=== PATIENT | female | born 1950 | race Caucasian/White ===

== ENCOUNTER 2019-03-28 19:05 | Emergency (ER) | payer MEDICARE, SELFPAY ==
[2019-03-28 19:06] VITALS: BP 162/95; PULSE 81; RESP 18; TEMP 36.5; O2SAT 97; BMI 30.9
--- NOTE | 2019-03-28 19:10 | RAD_ITS ---
STUDY: X-RAY - RIGHT KNEE REASON FOR EXAM: Female, 68 years old. Pain TECHNIQUE: 4 view(s) of the knee. COMPARISON: None. FINDINGS: No acute fracture, dislocation or osseous destruction. No significant joint space narrowing. No significant productive changes. No significant soft tissue swelling. Vascular calcifications are noted. IMPRESSION: No acute fracture or dislocation. Electronically Signed: Jose Holder, at 19:27 EST Tel , Service support , RAD/Knee 4 or More Views
--- NOTE | 2019-03-28 22:37 | ED.DCSUM_ITS ---
- ER Visit Summary Date of Service: 03/28/19 Chief Complaint: Right knee pain History of Present Illness: The patient is a 68 F who presents with right knee pain that has been getting progressively worse over the past 2 weeks. Patient describes the pain as sharp. Patient states initially the pain was radiating down her right leg but now is radiating to her right thigh. Patient denies any trauma or injury. Patient states nothing makes it better or worse. Patient denies any paresthesias or weakness. Patient states she is running out of her pain medication which is hydrocodone. Physical Examination: Vital signs are stable. Patient is afebrile. Patient is in no acute distress. Musculoskeletal exam reveals tenderness along the medial and lateral joint lines of the right knee. There is no effusion noted. There is no bony crepitance or step-off. There is good range of motion. There is no laxity appreciated. There is no calf tenderness noted. There is no lower extremity edema. There is some mild tenderness over the distal right thigh. There is no erythema or warmth. Sensation was intact to light touch bilateral and lower extremities. Strength is 5/5 bilateral and lower extremities. Test Results: X-rays of the right knee were obtained. There is no acute fracture. There is no effusion. There are very mild degenerative changes noted. These were interpreted by the radiologist and reviewed by myself. Emergency Department Course and Treatment: Patient was instructed to ice and elevate the right knee. Patient was instructed to follow-up with her primary care physician in 3 to 5 days. Patient was given a prescription for short course of [place]. Patient understood and was agreeable with the plan. All questions were answered. Disposition: Discharge home Impression: Right knee pain This note was generated with Playhem dictation software. It may contain incorrect words, spelling, and punctuation that were not noted in review of the chart prior to signing ED Disposition - Plan for ED Patient: Disposition: Home or Assisted Living Diagnosis: Right knee pain Instructions: KNEE PAIN, Uncertain Cause Prescriptions: Hydrocodone Bitart/Apap 5-325 [[place] 5MG-325MG] 1 tab PO Q6H PRN PRN 3 Days #10 tab PRN Reason: Pain Prescription Printed Referrals: Neo Merlos DO [Primary Care Provider] - 3-5 Days
== END 2019-03-28 22:58 | disposition home or self-care (01) ==
PROVIDERS: Emergency Provider Emergency Medicine; Family Provider Family Medicine; PCP Family Medicine
DX: M25.561 Pain in right knee (principal); J34.89 Other specified disorders of nose and nasal sinuses; J02.9 Acute pharyngitis, unspecified; R05 Cough; M54.9 Dorsalgia, unspecified; K21.9 Gastro-esophageal reflux disease without esophagitis; M10.9 Gout, unspecified; F41.9 Anxiety disorder, unspecified; G40.909 Epilepsy, unspecified, not intractable, without status epilepticus; Z86.718 Personal history of other venous thrombosis and embolism; Z79.01 Long term (current) use of anticoagulants; Z79.899 Other long term (current) drug therapy; F17.200 Nicotine dependence, unspecified, uncomplicated
CPT/HCPCS: 73564; 99282

== ENCOUNTER → 2019-04-05 16:15 | Outpatient (CLI) | payer MEDICARE, SELFPAY ==
[2019-03-28 19:06] VITALS: BMI 30.9
== END ==
PROVIDERS: Family Provider Family Medicine; PCP Family Medicine; Visit Provider Family Medicine
DX: M25.561 Pain in right knee (principal)
CPT/HCPCS: 36415

== ENCOUNTER → 2022-11-21 | Outpatient (CLI) | payer BC, MEDICARE, SELFPAY | END | disposition home or self-care (01) | PROVIDERS: PCP Family Medicine; Referring Provider Family Medicine; Visit Provider Family Medicine | DX: R05.9 Cough, unspecified (principal) | CPT/HCPCS: 87635 ==

== ENCOUNTER 2023-01-22 12:29 | Emergency (ER) | payer BC, MEDICARE, SELFPAY ==
[2023-01-22 12:31] VITALS: BP 163/89; PULSE 69; RESP 18; TEMP 36.8; O2SAT 97; BMI 28.5
--- NOTE | 2023-01-22 12:54 | EKG12_ITS ---
Test Reason : CP Blood Pressure : / mmHG Vent. Rate : 062 BPM Atrial Rate : 062 BPM P-R Int : 146 ms QRS Dur : 092 ms QT Int : 420 ms P-R-T Axes : 069 077 068 degrees QTc Int : 426 ms Normal sinus rhythm Nonspecific ST abnormality Abnormal ECG Confirmed by CHAO DEE, JOSE MARTIN ([id number]), videotape editor JOANN PATEL ([id number]) on 01/25/2023 10:45:58 AM Referred By: RUSTY/REGGIE Confirmed By:JOSE MARTIN GUIDRY MD
--- NOTE | 2023-01-22 12:55 | NURSING ---
no old ekgs
--- NOTE | 2023-01-22 12:56 | RAD_ITS ---
HISTORY: chest pain. TECHNIQUE: XR Chest 1 View. COMPARISON: None. FINDINGS: CARDIOMEDIASTINAL BORDERS: Cardiac silhouette within normal limits in size. Mediastinal contour unremarkable. LUNGS: Chronic coarse interstitial markings in the lungs without focal consolidation. PLEURA: No pleural effusion or pneumothorax seen. OSSEOUS STRUCTURES: Mild degenerative change. RAD/Chest 1 View (Portable) IMPRESSION: No acute cardiopulmonary process identified. Electronically Signed: Padma Lr MD at 13:26 EDT ,
--- NOTE | 2023-01-22 12:56 | EX.ED.DYSGE1 ---
HPI <EDY Mukherjee - Last Filed: 01/22/23 15:59> History of Present Illness Chief Complaint: Chest Pain Narrative Narrative: 72-year-old female with PMH of COPD, tobacco use presents with intermittent chest pain for the last month. About 2 to 3 days a week she will get midsternal sharp chest pain lasting anywhere from 5-30 minutes. It usually occurs at rest or lying down. She has no exertional or pleuritic pain. She has chronic shortness of breath and smoker's cough but denies increase in symptoms. There is no associated nausea vomiting or diaphoresis. No fever or chills. She denies history of DVT/PE or risk factors. Last episode of pain was last night but her urged her to come in for evaluation. She smokes about 3/4 a pack a day and has smoked since age 13. PFSH <EDY Mukherjee - Last Filed: 01/22/23 15:59> PFS Medical History (Updated 01/22/23 @ 13:57 by EDY Mukherjee) COVID-19 Home Medications diazepam 10 mg tablet (Valium) 10 mg PO BID PRN Anxiety 04/28/17 [History Last Taken Unknown] fluticasone 250 mcg-salmeterol 50 mcg/dose blistr powdr for inhalation (Advair Diskus) 1 ea IH DAILY 04/28/17 [History Last Taken Unknown] aspirin 81 mg tablet,delayed release (Adult Aspirin Regimen) 81 mg PO DAILY 12/02/21 [History Last Taken Unknown] azithromycin 250 mg tablet 250 mg PO QDAY #6 tabs 12/02/21 [Rx Last Taken Unknown] prednisone 10 mg tablet 10 mg PO DAILY #30 tabs 12/02/21 [Rx Last Taken Unknown] Allergy/AdvReac Type Severity Reaction Status Date / Time lactose Allergy Unknown Verified 01/22/23 12:30 Penicillins Allergy Unknown Verified 01/22/23 12:30 rizatriptan [From Maxalt] Allergy Vomiting Verified 01/22/23 12:30 ciprofloxacin [From Cipro] AdvReac Rash Verified 01/22/23 12:30 Surgical History (Updated 12/02/21 @ 13:57 by Katarina Carrillo) History of back surgery Social History (Updated 12/02/21 @ 13:58 by Katarina Carrillo) Smoking Status: Current every day smoker tobacco type: cigarettes ROS <EDY Mukherjee - Last Filed: 01/22/23 15:59> ROS ED ROS Narrative Constitutional: Negative for fever, chills, malaise. CVS: Negative for palpitations, chest pain, syncope. Respiratory: Positive for cough. Negative for orthopnea. GI: Negative for abdominal pain, nausea, vomiting. EXAM <EDY Mukherjee - Last Filed: 01/22/23 15:59> Physical Exam Narrative Exam Narrative: CONST: Patient sitting in no acute distress. EYES: Normal inspection. NECK: Normal inspection. RESP: No respiratory distress, expiratory wheezing throughout all santos. CVS: Regular rate and rhythm, no murmur, no gallop. SKIN: Color normal, no rash, warm, dry, intact. EXTREMITIES: Normal appearance, no pedal edema. NEURO: Oriented x4. PSYCH: Normal affect. Const Vital Signs: 01/22/23 12:31 01/22/23 12:47 01/22/23 13:09 Temperature 98.2 F Temperature Source Temporal Pulse Rate 69 Respiratory Rate 18 Respiratory Effort Normal Non-Labored Blood Pressure 163/89 H Blood Pressure Mean 113 Pulse Ox 97 95 Oxygen Delivery Method Room Air Room Air 01/22/23 16:03 Temperature Temperature Source Pulse Rate Respiratory Rate Respiratory Effort Blood Pressure 177/116 H Blood Pressure Mean Pulse Ox Oxygen Delivery Method <Dr. Jose Bradley DO - Last Filed: 01/22/23 16:17> Physical Exam Const Vital Signs: 01/22/23 12:31 01/22/23 12:47 01/22/23 13:09 Temperature 98.2 F Temperature Source Temporal Pulse Rate 69 Respiratory Rate 18 Respiratory Effort Normal Non-Labored Blood Pressure 163/89 H Blood Pressure Mean 113 Pulse Ox 97 95 Oxygen Delivery Method Room Air Room Air 01/22/23 16:03 Temperature Temperature Source Pulse Rate Respiratory Rate Respiratory Effort Blood Pressure 177/116 H Blood Pressure Mean Pulse Ox Oxygen Delivery Method MDM <EDY Mukherjee - Last Filed: 01/22/23 15:59> MDM MDM Narrative Medical decision making narrative: History gathered from: Patient and Patient's had intermittent midsternal chest pain over the last month. It usually occurs at rest and there is no associated symptoms. She has no pain presently. She appears well and nontoxic. She has chronic hypertension with otherwise normal vital signs. Exam is only notable for expiratory wheezing from her COPD. She denies increase in dyspnea or cough. Cardiac work-up was ordered. EKG is sinus rhythm with no ischemic changes and serial troponins are negative at 9 and 7. CBC and BMP unremarkable. CXR shows no acute process. I did not order D-dimer as she has no increased shortness of breath and normal vital signs. She remains asymptomatic here. Based on her history and work-up I have low concern this is cardiac but recommended she follow-up with her PCP for further evaluation of other chest pain etiologies such as GERD. She was discharged in stable condition. Lab Data Attestation: I reviewed the patient's lab results. Labs: Laboratory Results - last 24 hr 01/22/23 01/22/23 12:46 15:25 WBC 8.1 RBC 5.16 Hgb 16.0 H Hct 49.0 H MCV 95.0 MCH 31.0 MCHC 32.7 RDW Std Deviation 44.8 H RDW Coeff of Negro 12.6 Plt Count 298 MPV 9.5 Immature Gran % (Auto) 0.400 Neut % (Auto) 50.3 Lymph % (Auto) 36.7 [place] % (Auto) 8.5 Eos % (Auto) 3.2 Baso % (Auto) 0.9 Absolute Neuts (auto) 4.1 Absolute Lymphs (auto) 2.98 Nucleated RBC % 0 Sodium 141 Potassium 3.4 L Chloride 108 H Carbon Dioxide 28.0 Anion Gap 5 BUN 19 H Creatinine 0.70 Estim Creat Clear Calc 38.37 Est GFR (MDRD) Af Amer 106 Est GFR (MDRD) Non-Af 88 BUN/Creatinine Ratio 27.3 H Glucose 111 H Calcium 8.8 Troponin I High Sens 9 7 Radiography Diagnostic Testing: Clinical Impression(s) from Imaging Studies Chest X-Ray 01/22/23 12:56 IMPRESSION: No acute cardiopulmonary process identified. Electronically Signed: Padma Lr MD at 13:26 EDT , ED attending interpretation of 1- view chest x-ray shows normal heart size, no acute infiltrate, edema, or effusion. EKG Initial EKG: Attestation: I personally reviewed and interpreted this EKG as follows: Interpretation: Sinus Rhythm and No Acute Injury Pattern Comments: Normal sinus rhythm at [address] abnormality, no STEMI criteria <Dr. Jose Bradley, DO - Last Filed: 01/22/23 16:17> [facility] Narrative Medical decision making narrative: History gathered from: Patient and Patient's had intermittent midsternal chest pain over the last month. It usually occurs at rest and there is no associated symptoms. She has no pain presently. She appears well and nontoxic. She has chronic hypertension with otherwise normal vital signs. Exam is only notable for expiratory wheezing from her COPD. She denies increase in dyspnea or cough. Cardiac work-up was ordered. EKG is sinus rhythm with no ischemic changes and serial troponins are negative at 9 and 7. CBC and BMP unremarkable. CXR shows no acute process. I did not order D-dimer as she has no increased shortness of breath and normal vital signs. She remains asymptomatic here. Based on her history and work-up I have low concern this is cardiac but recommended she follow-up with her PCP for further evaluation of other chest pain etiologies such as GERD. She was discharged in stable condition. This patient was seen with a [employer] Individually assessed they patient including history and physical. I have reviewed everything on the chart that is available and agree with the documentation provided by the [employer] including discussion about the assessment, treatment plan, discussion, and return precautions. Patient with intermittent chest pain. HEART score of 3. CBC BMP, high-sensitivity troponin within normal limits. Delta troponin not significantly changed. Chest x-ray my interpretation shows no acute process. Radiologist interprets this and agrees. EKG sinus rhythm at 60 bpm, sinus congestion, interpretation. Given ultimately negative work-up I recommended follow-up with her PCP. Discharge instructions reviewed and return precautions discussed. Lab Data Labs: Laboratory Results - last 24 hr 01/22/23 01/22/23 12:46 15:25 WBC 8.1 RBC 5.16 Hgb 16.0 H Hct 49.0 H MCV 95.0 MCH 31.0 MCHC 32.7 RDW Std Deviation 44.8 H RDW Coeff of Negro 12.6 Plt Count 298 MPV 9.5 Immature Gran % (Auto) 0.400 Neut % (Auto) 50.3 Lymph % (Auto) 36.7 [place] % (Auto) 8.5 Eos % (Auto) 3.2 Baso % (Auto) 0.9 Absolute Neuts (auto) 4.1 Absolute Lymphs (auto) 2.98 Nucleated RBC % 0 Sodium 141 Potassium 3.4 L Chloride 108 H Carbon Dioxide 28.0 Anion Gap 5 BUN 19 H Creatinine 0.70 Estim Creat Clear Calc 38.37 Est GFR (MDRD) Af Amer 106 Est GFR (MDRD) Non-Af 88 BUN/Creatinine Ratio 27.3 H Glucose 111 H Calcium 8.8 Troponin I High Sens 9 7 Radiography Diagnostic Testing: Clinical Impression(s) from Imaging Studies Chest X-Ray 01/22/23 12:56 IMPRESSION: No acute cardiopulmonary process identified. Electronically Signed: Padma Lr MD at 13:26 EDT Reading Location ID and State: [address] [place] [address] Tel , Service support , Discharge Plan Triage Chief Complaint: Chest Pain ED Midlevel Provider: Ashley Monae ED Provider: Jose Bradley Dx/Rx/DC Orders Clinical Impression: Chest pain Instructions: Chest Pain [facility] Prescriptions: No Action aspirin [Adult Aspirin Regimen] 81 mg tablet,delayed release (DR/EC) 81 mg PO DAILY prednisone 10 mg tablet 10 mg PO DAILY Qty: 30 0RF Rx Instructions: 4 tablets daily x3 days, then 3 tablets daily x3 days, then 2 tablets daily x3 days, then 1 tablet daily x3 days azithromycin 250 mg tablet 250 mg PO QDAY Qty: 6 0RF Rx Instructions: 2 tablets today, then 1 tablet daily on days 2 through 5 fluticasone propion-salmeterol [Advair Diskus] 1 EACH blister with device 1 ea IH DAILY diazepam [Valium] 10 MG tablet 10 mg PO BID PRN (Reason: Anxiety) Primary Care Provider: Neo Merlos Referrals: Neo Merlos DO [Primary Care Provider] - Activity Restrictions/Additional Instructions: Today your blood work and chest x-ray looked normal. No signs of heart attack. I recommend you follow-up with your PCP next week or if symptoms worsen come back to the ER. Disposition Disposition: Home, Self Care Discharge Date/Time: 01/22/23 16:04
[2023-01-22 13:09] VITALS: O2SAT 95
[2023-01-22] MEDS: Aspirin 81 MG TAB.CHEW 324 MG PO (13:12)
[2023-01-22 13:15] LABS: Absolute Lymphocyte Count 2.98 X10^3/uL (0.83-4.51); Absolute Neutrophil Count 4.1 X10^3/uL (2.0-7.7); Basophil# 0.07 X10^3/uL; Basophil% 0.9 % (0-1); Eosinophil# 0.26 X10^3/uL; Eosinophils% 3.2 % (0-5); Lymphocyte # 2.98 X10^3/ul (0.83-4.51); Lymphocyte % 36.7 % (19-41); Mean Corp Hgb Conc 32.7 g/dL (32-36); Mean Platelet Vol. 9.5 fl (6.2-12.0); Monocyte# 0.69 X10^3/uL; Monocyte% 8.5 % (0-10); NRBC Flagged by Analyzer 0 % (0-5); Neutrophil % 50.3 % (47-70); Platelet Count 298 K/mm3 (150-450); RBC Distribution Width CV 12.6 % (11.6-14.6); RBC Distribution Width SD 44.8 fl (35.1-43.9); Red Blood Count 5.16 M/mm3 (4.2-5.4); White Blood Count 8.1 K/mm3 (4.4-11.0)
[2023-01-22 13:29] LABS: Anion Gap 5 (5-15); BUN 19 mg/dL (7-18); BUN/Creat Ratio 27.3 RATIO (10-20); Calcium,Total 8.8 mg/dL (8.5-10.1); Chloride 108 mmol/L (98-107); EST Glomerular Filtration Rate 88 mL/min (>60); Est Glom Filt Rate - Afr Amer 106 mL/min (>60); Estimated Creatinine Clearance 38.37 ml/min; Glucose 111 mg/dL (74-106); Potassium 3.4 mmol/L (3.5-5.1); Sodium Level 141 mmol/L (136-145); Troponin-I HS (w/2H Reflex) 9 pg/mL (3.0-54.0)
[2023-01-22 15:04] LABS: Reflex Troponin-HS? (from REC) Y
[2023-01-22 15:52] LABS: Troponin-I HS 7 pg/mL (3.0-54.0)
[2023-01-22 16:03] VITALS: BP 177/116
== END 2023-01-22 16:04 | disposition home or self-care (01) ==
PROVIDERS: Physician Assistant; Emergency Provider Student in an Organized Health Care Education/Training Program; PCP Family Medicine; Visit Provider Student in an Organized Health Care Education/Training Program
DX: R07.9 Chest pain, unspecified (principal); J44.9 Chronic obstructive pulmonary disease, unspecified; I10 Essential (primary) hypertension; F17.210 Nicotine dependence, cigarettes, uncomplicated; Z79.51 Long term (current) use of inhaled steroids
CPT/HCPCS: 71045; 80048; 84484; 85025; 93005; 99284; A4216

== ENCOUNTER → 2023-08-21 | Outpatient (CLI) | payer MEDICARE, SELFPAY ==
[2023-08-21 18:43] LABS: Cholesterol 223 mg/dL (200); High Density Lipoprotein 48 mg/dL; Triglycerides 116 mg/dL; Very Low Density Lipoprotein 23 mg/dL (5-40)
== END | disposition home or self-care (01) ==
PROVIDERS: PCP Family Medicine; Referring Provider Family Medicine; Visit Provider Family Medicine
DX: E78.5 Hyperlipidemia, unspecified (principal)
CPT/HCPCS: 36415; 80061

== ENCOUNTER 2023-09-08 15:29 | Outpatient (CLI) | payer MEDICARE, SELFPAY ==
--- NOTE | 2023-09-08 15:36 | CT_ITS ---
HISTORY: SCREENING FOR LUNG CA. TECHNIQUE: Helically acquired images were obtained of the chest without contrast. A radiation dose optimization technique was used for this scan. 847 images. COMPARISON: XR 01/22/2023. FINDINGS: LARGE AIRWAYS: Minimal dependent fluid in the central airways. LUNGS: Moderate centrilobular emphysema. Mild peripheral reticular scarring and bronchiectasis. 2 mm noncalcified right lower lobe nodule on image 198 of series 2. 2 mm left apical nodule on image 47. PLEURA: No pneumothorax or significant pleural effusion. HEART/PERICARDIUM: Heart within normal limits in size with coronary artery calcification. No pericardial effusion. VESSELS: Thoracic aorta nondilated. Mild atherosclerosis. MEDIASTINUM/BRANDIE: No pathologically enlarged adenopathy. BONES: Degenerative change. CT/Low Dose CT Lung Screening IMPRESSION: Pulmonary emphysema with 2 mm pulmonary nodules. Lung-RADS category 2: Continue annual screening with low dose CT. Electronically Signed: Padma Lr MD at 15:22 EDT ,
== END 2023-09-08 23:59 | disposition home or self-care (01) ==
PROVIDERS: PCP Family Medicine; Referring Provider Family Medicine; Visit Provider Family Medicine
DX: Z12.2 Encounter for screening for malignant neoplasm of respiratory organs (principal); J43.9 Emphysema, unspecified; R91.8 Other nonspecific abnormal finding of lung field; F17.210 Nicotine dependence, cigarettes, uncomplicated
CPT/HCPCS: 71271

== ENCOUNTER 2024-01-23 13:19 | Inpatient (IN) | payer MEDICARE, SELFPAY ==
[2024-01-23] VITALS (7 sets, daily range): BP systolic 113–159; BP diastolic 65–102; PULSE 65–89; RESP 15–20; TEMP 36.5–37; O2SAT 95–100; BMI 26.2; BMI 25.0
--- NOTE | 2024-01-23 14:07 | EKG12_ITS ---
Test Reason : Blood Pressure : / mmHG Vent. Rate : 059 BPM Atrial Rate : 059 BPM P-R Int : 136 ms QRS Dur : 086 ms QT Int : 412 ms P-R-T Axes : 079 079 076 degrees QTc Int : 407 ms Sinus bradycardia Otherwise normal ECG Confirmed by CHAO DEE, JOSE MARTIN ([id number]), state editor STUART RIOS ([id number]) on 01/25/2024 1:43:18 PM Referred By: Confirmed By:JOSE MARTIN GUIDRY MD
--- NOTE | 2024-01-23 14:07 | RAD_ITS ---
HISTORY: Stroke. TECHNIQUE: XR Chest 1 View. COMPARISON: 01/22/2023. FINDINGS: CARDIOMEDIASTINAL BORDERS: Cardiac silhouette within normal limits in size. Mediastinal contour unremarkable. LUNGS: Chronic coarse interstitial markings in the lung bases without focal consolidation. PLEURA: No pleural effusion or pneumothorax seen. OSSEOUS STRUCTURES: Degenerative change. RAD/Chest 1 View (Portable) IMPRESSION: No acute cardiopulmonary process identified. Electronically Signed: Padma Lr MD at 15:15 EDT ,
[2024-01-23 14:27] LABS: Absolute Lymphocyte Count 2.77 X10^3/uL (0.83-4.51); Absolute Neutrophil Count 5.7 X10^3/uL (2.0-7.7); Basophil# 0.04 X10^3/uL; Basophil% 0.4 % (0-1); Eosinophil# 0.11 X10^3/uL; Eosinophils% 1.2 % (0-5); Hematocrit 46.2 % (37-47); Lymphocyte # 2.77 X10^3/ul (0.83-4.51); Lymphocyte % 29.7 % (19-41); Mean Corp Hgb Conc 32.5 g/dL (32-36); Mean Corpuscular Hgb 31.4 pg (27.0-32.0); Mean Corpuscular Volume 96.9 fL (81-99); Mean Platelet Vol. 8.9 fl (6.2-12.0); Monocyte# 0.68 X10^3/uL; Monocyte% 7.3 % (0-10); NRBC Flagged by Analyzer 0 % (0-5); Neutrophil % 61.2 % (47-70); Platelet Count 338 K/mm3 (150-450); RBC Distribution Width CV 12.9 % (11.6-14.6); RBC Distribution Width SD 46.3 fl (35.1-43.9); Red Blood Count 4.77 M/mm3 (4.2-5.4); White Blood Count 9.3 K/mm3 (4.4-11.0)
[2024-01-23 14:35] LABS: Prothrombin Time (Protime)PT. 13.4 SECONDS (11.7-14.9)
[2024-01-23 14:42] LABS: Anion Gap 6 (5-15); BUN 9 mg/dL (7-18); BUN/Creat Ratio 12.5 RATIO (10-20); Calcium,Total 9.4 mg/dL (8.5-10.1); Chloride 102 mmol/L (98-107); Creatinine, Serum 0.72 mg/dL (0.55-1.02); EST Glomerular Filtration Rate 84 mL/min (>60); Est Glom Filt Rate - Afr Amer 102 mL/min (>60); Glucose 90 mg/dL (74-106); Potassium 3.3 mmol/L (3.5-5.1); Sodium Level 137 mmol/L (136-145)
--- NOTE | 2024-01-23 16:45 | EDS_ITS ---
HPI History of Present Illness Chief Complaint: Neuro S/Sx Narrative Narrative: 73-year-old female past medical history of memory issues for years, was brought in by her because of 2 days of confusion. He also states that she was unable to take her finger and touch her nose or his hand. He states that 2 days ago, he made an appointment with [facility] neurologist because she has been having problems with her memory for years. It seems like she has been more confused. She states that her water tasted funny, and he went to change and he found Food in it. She was unaware of how it got in there. She denies any headache, no chest pain or other symptoms. [facility] Medical History COVID-19 Home Medications ?Medication ?Instructions ?Recorded ?Last Taken ?Type diazepam 10 mg tablet (Valium) 10 mg PO BID PRN Anxiety 04/28/17 Unknown History aspirin 81 mg tablet,delayed 81 mg PO DAILY 12/02/21 Unknown History release (Adult Aspirin Regimen) albuterol sulfate 90 mcg/actuation 2 puff inhalation Q4H PRN 01/23/24 Unknown History aerosol inhaler shortness of breath or wheezing hydrocodone-acetaminophen 5-325mg 1 tab PO TID PRN PRN pain 01/23/24 Unknown History 5mg-325mg Allergy/AdvReac Type Severity Reaction Status Date / Time lactose Allergy Unknown Verified 01/23/24 13:21 Penicillins Allergy Unknown Verified 01/23/24 13:21 rizatriptan (From Maxalt) Allergy Vomiting Verified 01/23/24 13:21 ciprofloxacin (From Cipro) AdvReac Rash Verified 01/23/24 13:21 Surgical History History of back surgery Social History Smoking Status: Current every day smoker tobacco type: cigarettes ROS ROS ED ROS Narrative Constitutional: No fever, no chills. Increased confusion. HEENT: No sore throat. No neck pain. No loss of vision. No rhinorrhea. Cardiovascular: No chest pain. No palpitations. No pedal edema. Respiratory: No cough, no shortness of breath. Abdominal: No abdominal pain. No nausea. No vomiting. Genitourinary: No dysuria. No hematuria. Musculoskeletal: No myalgias. No arthralgias. Neurologic: No headaches. No dizziness. No lightheadedness. Positive confusion. Reported ataxia of right upper extremity according to . Skin: No rash. No change in color. Psychiatric: No depression. No anxiety. EXAM Physical Exam Narrative Exam Narrative: Afebrile. Vital signs noted. HEENT: Normocephalic. Atraumatic. PERRL, EOMI. Neck soft and supple. No point tenderness or step off. Cardiovascular: Regular rate and rhythm. No murmurs, rubs, or gallops appreciated. Respiratory: No tachypnea. Lungs clear to auscultation bilaterally. Gastrointestinal: Abdomen soft, nontender, with normoactive bowel sounds. No rebound or guarding. Neurological: Awake. Alert. Nonfocal, nonlateralizing. Normal [id number]. NIH stroke scale is 0. Skin: No rash. Normal color. No pallor. Musculoskeletal: No pedal edema. Full range of motion extremities. Const Vital Signs: 01/23/24 13:21 01/23/24 16:34 01/23/24 16:34 Temperature 98.3 F Temperature Source Temporal Pulse Rate 67 89 Respiratory Rate 18 Blood Pressure 118/81 H 157/69 H Blood Pressure Mean 93 98 Pulse Ox 100 Oxygen Delivery Method Room Air Room Air 01/23/24 17:00 01/23/24 18:00 Temperature Temperature Source Pulse Rate Respiratory Rate Blood Pressure 146/68 H 113/98 H Blood Pressure Mean 94 103 Pulse Ox Oxygen Delivery Method MDM MDM MDM Narrative Medical decision making narrative: I reviewed the patient's EMR. Given her ongoing symptoms for at least 2 days, she was not made a stroke team from triage by Dr. Monaco. Additionally, I feel she has an NIH stroke scale of 0 as I did not appreciate any ataxia of her right upper extremity like her had stated. She is outside the window for TNK as her symptoms have been ongoing for greater than 24 hours. EKG was obtained and interpreted by myself independently as sinus bradycardia at 59 bpm without ectopy or acute ST changes. No STEMI. Comprehensive workup was pursued. I do feel CT imaging of the brain is indicated however, I do not feel that CTA of the head and neck is indicated as she is not a stroke team and she has no focal deficit and her NIH stroke scale is 0. Initial laboratory work was obtained, and she has normal white count of 9.3, hemoglobin normal at 15.0, hematocrit 46.2, platelet count normal at 338. INR is normal at 1.0, electrolyte panel is remarkable for potassium low at 3.3 which can be replaced orally. Normal BUN of 9 and creatinine 0.72. Look for other causes of her reported confusion including delirium with UTI. Chest x-ray was obtained and interpreted by myself independently as no evidence of pneumonia or pneumothorax. I reviewed the radiology report which confirms my independent interpretation. I reviewed the radiology report of the CT of the brain. There is the possibility of acute versus subacute stroke on the left in the left MCA territory. This might explain her reported right sided ataxia and her disequilibrium. I do feel that she requires observation for further studies including MRI. However, patient stated that she wants to go home and is discussing this with her as I feel she would need to sign out AGAINST MEDICAL ADVICE. I do feel she has the capacity to make this decision, and she was told of the risk of permanent disability including paralysis, and , and acknowledges an understanding. However, upon repeat examination, patient is agreeable to stay overnight. I discussed patient with Dr. Hilario for observation on the PCU for subacute stroke workup. Patient is in stable condition. History & Record Review Discussion w/independent historian: Patient and Family Lab Data Attestation: I reviewed the patient's lab results. Labs: Laboratory Results - last 24 hr 01/23/24 14:19 WBC 9.3 RBC 4.77 Hgb 15.0 Hct 46.2 MCV 96.9 MCH 31.4 MCHC 32.5 RDW Std Deviation 46.3 H RDW Coeff of Negro 12.9 Plt Count 338 MPV 8.9 Immature Gran % (Auto) 0.200 Neut % (Auto) 61.2 Lymph % (Auto) 29.7 [place] % (Auto) 7.3 Eos % (Auto) 1.2 Baso % (Auto) 0.4 Absolute Neuts (auto) 5.7 Absolute Lymphs (auto) 2.77 Nucleated RBC % 0 PT 13.4 INR 1.0 APTT 24.0 L Sodium 137 Potassium 3.3 L Chloride 102 Carbon Dioxide 29.0 Anion Gap 6 BUN 9 Creatinine 0.72 Est GFR (MDRD) Af Amer 102 Est GFR (MDRD) Non-Af 84 BUN/Creatinine Ratio 12.5 Glucose 90 Calcium 9.4 Radiography Chest X-Ray - ED: 1 View, Read by ED Physician and Read by Radiologist Diagnostic Testing: Clinical Impression(s) from Imaging Studies Chest X-Ray 01/23/24 14:07 IMPRESSION: No acute cardiopulmonary process identified. Electronically Signed: Padma Lr MD at 15:15 EDT , Brain CT 01/23/24 16:45 IMPRESSION: Possible acute or subacute infarct left MCA territory. MRI would be helpful for further characterization. Electronically Signed: Haroon Moser MD at 17:36 EDT , Discharge Plan Dx/Rx/DC Orders Clinical Impression: Acute ischemic left MCA stroke, Confusion Disposition Disposition: Acute Care [facility]
--- NOTE | 2024-01-23 16:45 | CT_ITS ---
STUDY: CT BRAIN WITHOUT CONTRAST REASON FOR EXAM: Female, 73 years old. confusion RADIATION DOSAGE (If Supplied By Facility): CTDIvol = ( 44.99 ) mGy, DLP = ( 812.98 ) mGycm TECHNIQUE: Transaxial CT imaging of the brain was performed without administration of intravenous contrast material. Individualized dose optimization techniques were used for this CT. The protocol utilizes one or more of the following dose reduction techniques: automated exposure control, adjustment of mA and/or kV according to patient size,and/or use of iterative reconstruction technique. COMPARISON: MR brain dated the June FINDINGS: Normal soft tissue structures. Normal calvarium. Intracranial atherosclerosis. Left perirolandic hypodensity. There are areas of decreased attenuation within the white matter tracts of the supratentorial brain, consistent with microvascular disease changes. Normal basal ganglia and thalami. Normal brainstem. Normal cerebellum. There is no intracranial hemorrhage. There are no findings of an acute ischemic infarction. Normal visualized paranasal sinuses. CT/Brain/Head without Contrast IMPRESSION: Possible acute or subacute infarct left MCA territory. MRI would be helpful for further characterization. Electronically Signed: Haroon Moser MD at 17:36 EDT ,
[2024-01-23] MEDS: 0.9% Normal Saline (1000mL) 1,000 ML 50 ML IV (18:38)
--- NOTE | 2024-01-23 18:43 | HP.PCM.HOS_ITS ---
HPI - General General Date of Admission: 01/23/24 Date of Service: 01/23/24 Chief Complaint: stroke like symptoms HPI Narrative RADHA SURESH, is a 73 F with a PMH as outlined who presents via the ED on 01/23/2024 with a complaint of confusion. History was mainly taken from her who said patient had been having memory issues for several years. However, two days prior to admission, he noted that she was becoming more confused and couldnt follow instructions. He said she could not touch her nose or his hand with her finger and he also felt that she had some right-sided weakness though patient denied this. She had not had any headache, blurred vision, shortness of breath, chest pain or any other symptoms apart from the confusion. Patient was able to give some history and said she was brought to the hospital by her because he said she was getting forgetful; she however felt that at 73, she was allowed to be forgetful a bit and did not think she had any problem. Review of systems was otherwise negative. Vitals in the ED were temp of 98.3F, MA of 89, BP of 157/69, RR of 18 and she was saturating at 100% on room air. CBC was unremarkable. INR was 1. Chemistry was only remarkable for potassium of 3.3 but was otherwise unremarkable. CT of the brain showed possible acute to subacute infarct in the left MCA territory. CTA of the head and neck was not done. Patient has been admitted to be managed for acute CVA. [facility] Medical History COVID-19 Home Medications ?Medication ?Instructions ?Recorded ?Last Taken ?Type diazepam 10 mg tablet (Valium) 10 mg PO BID PRN Anxiety 04/28/17 Unknown History aspirin 81 mg tablet,delayed 81 mg PO DAILY 12/02/21 Unknown History release (Adult Aspirin Regimen) albuterol sulfate 90 mcg/actuation 2 puff inhalation Q4H PRN 01/23/24 Unknown History aerosol inhaler shortness of breath or wheezing hydrocodone-acetaminophen 5-325mg 1 tab PO TID PRN PRN pain 01/23/24 Unknown History 5mg-325mg Allergy/AdvReac Type Severity Reaction Status Date / Time lactose Allergy Unknown Verified 01/23/24 13:21 Penicillins Allergy Unknown Verified 01/23/24 13:21 rizatriptan (From Maxalt) Allergy Vomiting Verified 01/23/24 13:21 ciprofloxacin (From Cipro) AdvReac Rash Verified 01/23/24 13:21 Surgical History History of back surgery Social History Smoking Status: Current every day smoker tobacco type: cigarettes ROS Constitutional Constitutional: Denies anorexia, chills, fatigue, fever(s), malaise or weakness Eyes Eyes: Denies change in vision ENT HEENT: Denies dysphagia, headache(s), sinus pressure or sore throat Cardiovascular Cardiovascular: Denies chest pain, dyspnea on exertion, edema, lightheadedness, orthopnea or palpitations Respiratory/Chest Respiratory/Chest: Denies cough, dyspnea, productive cough, shortness of breath at rest or shortness of breath with exertion Gastrointestinal Gastrointestinal: Denies abdominal pain, constipation, diarrhea, nausea or vomiting Genitourinary Genitourinary: Denies burning urination or dysuria Musculoskeletal Musculoskeletal: Denies arthralgias, back pain or joint pain Neurologic Neurologic: Denies abnormal gait, abnormal speech, confusion, disequilibrium, dizziness, focal weakness, headache(s), numbness, paresthesias, seizure-like activity, seizures, syncope or tingling Psychiatric Psychiatric: Denies anxiety or depression Endocrine Endocrinology: Denies change in body appearance Vital Signs Vital Signs Vital Signs: 01/23/24 13:21 01/23/24 16:34 01/23/24 16:34 Temperature 98.3 F Temperature Source Temporal Pulse Rate 67 89 Respiratory Rate 18 Blood Pressure 118/81 H 157/69 H Blood Pressure Mean 93 98 Pulse Ox 100 Oxygen Delivery Method Room Air Room Air 01/23/24 17:00 01/23/24 18:00 Temperature Temperature Source Pulse Rate Respiratory Rate Blood Pressure 146/68 H 113/98 H Blood Pressure Mean 94 103 Pulse Ox Oxygen Delivery Method Weight Weight: 139 lb 1.6 oz Body Mass Index (BMI) 26.2 Physical Exam Const alert, oriented x3 and no apparent distress General Appearance: cooperative Orientation / Consciousness: confused HEENT normocephalic, head/scalp atraumatic, hearing grossly normal bilaterally, moist oral mucous membranes and oropharynx normal Mouth: oral and palatal mucosa normal Eyes PERRL, EOMs intact bilaterally and conjunctivae normal Neck no lymphadenopathy and supple Resp normal respiratory effort, no use of accessory muscles and clear to auscultation bilaterally Cardio regular rate, regular rhythm, S1 normal heart sound, S2 normal heart sound and no murmurs Extremity normal to inspection, full ROM and no clubbing, cyanosis or edema Neuro oriented x3, CN's II-XII intact bilaterally and moves all extremities Sensorium / Orientation: awake, alert, oriented to person, oriented to place and oriented to time Coordination / Balance: [id number] test normal and [id number]-pt-[id number] test normal Speech: speech normal Motor Exam: strength 5/5 throughout Psych affect normal Results Lab / Micro Data 01/23/24 14:19 01/23/24 14:19 Labs: Laboratory Results - last 24 hr 01/23/24 14:19: WBC 9.3, RBC 4.77, Hgb 15.0, Hct 46.2, MCV 96.9, MCH 31.4, MCHC 32.5, RDW Std Deviation 46.3 H, RDW Coeff of Negro 12.9, Plt Count 338, MPV 8.9, Immature Gran % (Auto) 0.200, Neut % (Auto) 61.2, Lymph % (Auto) 29.7, Cottle % (Auto) 7.3, Eos % (Auto) 1.2, Baso % (Auto) 0.4, Absolute Neuts (auto) 5.7, Absolute Lymphs (auto) 2.77, Nucleated RBC % 0, PT 13.4, INR 1.0, APTT 24.0 L, Sodium 137, Potassium 3.3 L, Chloride 102, Carbon Dioxide 29.0, Anion Gap 6, BUN 9, Creatinine 0.72, Est GFR (MDRD) Af Amer 102, Est GFR (MDRD) Non-Af 84, BUN/Creatinine Ratio 12.5, Glucose 90, Calcium 9.4 Imaging Radiology Impression Chest X-Ray 01/23/24 14:07 IMPRESSION: No acute cardiopulmonary process identified. Electronically Signed: Padma Lr MD at 15:15 EDT Reading Location ID and State: [facility] / [place] Tel , Service support , Brain CT 01/23/24 16:45 IMPRESSION: Possible acute or subacute infarct left MCA territory. MRI would be helpful for further characterization. Electronically Signed: Haroon Moser MD at 17:36 EDT , Assessment & Plan Assessment/Plan (1) Confusion: (2) Acute ischemic left MCA stroke: PLAN: Plan Acute left MCA stroke * admitted with a complaint of confusion and altered mental status * Imaging done showed an acute vs subacute left MCA stroke. * Not a TNK candidate as she is outside the window for TNK * NIHSS was 0 at time I reviewed her, though at 16:40, it was documented as 3 by nursing. * CTA head and neck not done; asked ED doctor to order it. * admit to PCU * get MRI of the brain. Start on PO aspirin and high intensity statin and will give a loading dose of Plavix to 100 mg x 1 and continue with Plavix 75 mg daily. * get 2D echo * consult neurology after MRI brain results. * monitor NIHSS. * fall precautions * #Nicotine dependence: says she smokes a pack of cigarettes a day. Nicotine patch 21mg daily. Counseled to quit. #Elevated blood pressure: * Blood pressure was markedly elevated with systolic ranging in the 150s to 190s systolic. * Patient's is not a known hypertensive. On IV labetalol as needed per Stroke protocol. * Blood pressure remains elevated will start blood pressure meds after she gets MRI to confirm or rule out a stroke. * Will allow for permissive hypertension now in light of stroke. * #DVT prophylaxis: SCDs Code status: * Patient counseled extensively about different types of CODE STATUS including full code, DNR CCA and DNR CCA. * Patient elects to be full code. * Total [id number]-[id number]-[id number] time 17 minutes. Charges/Coding Visit Charges Inpatient E&M: 04939 Init Hosp L3 Procedures Hospitalists Procedures: 98085 Advncd Care Plan 30 Min
--- NOTE | 2024-01-23 19:02 | CT_ITS ---
We are attempting to reach an attending provider to discuss findings. An addendum with communication details will be sent when the communication is complete. STUDY: CTA HEAD AND NECK WITH CONTRAST REASON FOR EXAM: Female, 73 years old. acute stroke RADIATION DOSAGE (If Supplied By Facility): CTDIvol = ( 19.95 ) mGy, DLP = ( 563.68 ) mGycm TECHNIQUE: CT angiography was performed with a multi-detector CT scanner. Data acquisition was obtained from the skull base through the vertex following intravenous administration of IV 100mL Isovue-370. MIP images were reconstructed from the axial data set. Post-processing of the angiographic images was performed, with multiplanar reformation and 3D reconstruction. Individualized dose optimization techniques were used for this CT. The protocol utilizes one or more of the following dose reduction techniques: automated exposure control, adjustment of mA and/or kV according to patient size,and/or use of iterative reconstruction technique. COMPARISON: CT brain January 23, 2024 FINDINGS: Left petrous is somewhat diminished in caliber/flow throughout due to occlusion or near occlusion at the skull base. Right petrous segment is normal. Normal right cavernous carotid artery with a normal supraclinoid bifurcation. Normal left cavernous carotid artery with a normal supraclinoid bifurcation. Normal right A1 segments of the anterior cerebral artery. Normal left A1 segments of the anterior cerebral artery. Normal intact anterior communicating artery (ACOM). Normal bilateral A2 segments of the anterior cerebral arteries. Normal right M1 and M2 segments of the middle cerebral arteries, with a normal M1 bifurcation. Normal left M1 and M2 segments of the middle cerebral arteries, with a normal M1 bifurcation. There is a persistent origin of the right posterior cerebral artery with absence of the posterior communicating artery (PCOM). There is non-visualization of the left posterior communicating artery (PCOM). Normal bilateral vertebral arteries. Normal basilar artery with a normal basilar bifurcation. The visualized bilateral superior cerebellar (SCA) arteries are normal. Normal bilateral P1, P2 and visualized P3 segments of the posterior cerebral arteries. There is no demonstrated aneurysm of the [place]. There is no demonstrated abnormality of the visualized brain. AORTIC ARCH: Normal visualized aortic arch. Normal origins of the brachiocephalic, left common carotid, and left subclavian arteries. RIGHT CAROTID ARTERIES: Normal right common carotid artery (CCA). There is mild atherosclerotic plaque formation with minimal narrowing of the right carotid bulb. There is mild atherosclerotic plaque formation of the origin of the right internal carotid artery with less than 50% cross sectional diameter stenosis. Normal visualized cervical portion of the right internal carotid artery. Normal origin of the right external carotid artery (ECA). LEFT CAROTID ARTERIES: Normal left common carotid artery (CCA). There is extensive atherosclerotic plaque formation with severe narrowing of the carotid bulb with a hemodynamically significant stenosis. Occlusion or near occlusion left internal carotid artery to the skull base. Normal visualized cervical portion of the left internal carotid artery. Normal origin of the left external carotid artery (ECA). VERTEBRAL ARTERIES: Normal bilateral vertebral arteries. CT/CTA Head AND Neck W/ Contrast IMPRESSION: Occlusion or near occlusion entire left internal carotid artery. Reconstitution at the petrous segment. Electronically Signed: Haroon Moser MD at 21:49 EDT ,
--- NOTE | 2024-01-23 20:16 | ECHOD_ITS ---
Reason For Study: TIA/CVA Procedure This was a 2D Doppler, Color Flow transthoracic echocardiogram. Exam performed portable in ICU/CCU. Left Ventricle Normal LV size. Left ventricular systolic function is normal. The left ventricular ejection fraction is 70 %. Stage 1 diastolic dysfunction. No regional wall motion abnormalities noted. Right Ventricle Normal RV size. Normal systolic function. Atria Normal left atrium. Normal right atrium. Bubble contrast study negative for right to left interatrial shunt. Mitral Valve Normal mitral valve. Tricuspid Valve Normal tricuspid valve. Aortic Valve Trisinus/trileaflet aortic valve. Mild focal aortic valve thickening. Mild (1+) aortic valve insufficiency. Pulmonic Valve Normal pulmonic valve. Great Vessels Normal aortic root. The pulmonary artery is normal size. Normal inferior vena cava. Pericardium/Pleural No pericardial effusion. Medication Performed a rapid injection of agitated mix of 9 cc saline and 1cc air to assess for atrial septal defect. MMode/2D Measurements & Calculations LVIDd: 4.3 cm IVSd: 0.98 cm Ao root diam: 3.6 cm LVIDs: 2.6 cm LVPWd: 1.0 cm RVDd: 3.4 cm FS: 40.6 % LAV(MOD-sp4): 25.8 ml LVAd ap4: 26.5 cm2 SV(MOD-sp4): 51.3 ml LVLd ap4: 8.4 cm EDV(MOD-sp4): 71.7 ml EDV(sp4-el): 70.8 ml LVAs ap4: 11.9 cm2 LVLs ap4: 6.6 cm ESV(MOD-sp4): 20.3 ml ESV(sp4-el): 18.1 ml EF(MOD-sp4): 71.6 % EF(sp4-el): 74.4 % SV(sp4-el): 52.7 ml LA A4 area: 11.5 cm2 LA dimension(2D): 3.3 cm RA A4 area: 10.9 cm2 TAPSE: 2.0 cm Time Measurements MV dec time: 0.26 sec Doppler Measurements & Calculations MV E max juan: 65.8 cm/sec Lat Peak E' Juan: 6.8 cm/sec Med Peak E' Juan: 8.1 cm/sec MV A max juan: 100.5 cm/sec E/E' lat: 9.7 E/E' med: 8.1 MV E/A: 0.65 MV V2 max: 114.3 cm/sec MV P1/2t max juan: 67.3 cm/sec Ao V2 max: 165.1 cm/sec MV max P.2 mmHg Ao max P.9 mmHg MV V2 mean: 51.2 cm/sec Ao V2 mean: 100.7 cm/sec MV mean P.3 mmHg Ao mean P.6 mmHg MV V2 VTI: 28.6 cm Ao V2 VTI: 33.5 cm AV (velocity ratio): 0.78 AI max juan: 359.8 cm/sec LV V1 max: 146.5 cm/sec PA V2 max: 108.7 cm/sec AI max P.8 mmHg LV V1 max P.6 mmHg PA V2 mean: 78.6 cm/sec AI dec slope: 167.4 cm/sec2 LV V1 mean P.4 mmHg AI P1/2t: 629.6 msec LV V1 mean: 86.0 cm/sec LV V1 VTI: 26.0 cm ECHO/Echo Complete Interpretation Summary Normal LV size. Left ventricular systolic function is normal. The left ventricular ejection fraction is 70 %. Mild (1+) aortic valve insufficiency. Mild focal aortic valve thickening. Stage 1 diastolic dysfunction. Bubble contrast study negative for right to left interatrial shunt. Ordering Physician: Rekha Hilario Referring Physician: Neo Merlos Performed By: Deb Hdez, MARICS, RVT
[2024-01-23] MEDS: Atorvastatin Calcium 80 MG Tablet PO (21:18)
[2024-01-23] MEDS: Clopidogrel Bisulfate 300 MG Tablet PO (21:18)
[2024-01-23] MEDS: HYDROcodone Bitartrate/Apap 5/325 Tablet PO (21:35)
[2024-01-23] MEDS: LORazepam 0.5 MG Tablet PO (22:07)
[2024-01-24 00:30] VITALS: BP 125/80; PULSE 82; RESP 20; TEMP 36.4; O2SAT 93
[2024-01-24 00:34] VITALS: BMI 25.0
[2024-01-24 02:05] LABS: Hemoglobin A1c 5.4 % (3.8-5.6)
[2024-01-24 02:47] VITALS: O2SAT 95
[2024-01-24 04:30] VITALS: BP 148/76; PULSE 73; RESP 19; TEMP 36.2; O2SAT 96
[2024-01-24 04:41] VITALS: BMI 25.0
--- NOTE | 2024-01-24 07:10 | PN.HOSP_ITS ---
Reason for Visit Reason for Visit: Diagnoses Cerebral infarction due to unspecified occlusion or stenosis of left middle cerebral artery (01/23/24) Disorientation, unspecified (01/23/24) Subjective Subjective Patient is a 73-year-old gentleman admitted with ataxia, subjective right upper extremity weakness and difficulty working. Imaging studies done in the ED demonstrated acute versus subacute left MCA CVA admitted to a monitored bed for further management Objective Data Objective Data Vital Signs: Vital Signs Temp Pulse Resp BP Pulse Ox O2 Del Method O2 Flow Rate 97.2 F L 73 19 H 148/76 H 96 Nasal Cannula 2 01/24/24 04:30 01/24/24 04:30 01/24/24 04:30 01/24/24 04:30 01/24/24 04:30 01/24/24 06:41 01/24/24 06:41 Oxygen Flow Rate (L/min) 2 Oxygen Delivery Method Nasal Cannula Weight: 61.9 kg Body Mass Index (BMI) 25.0 Intake & Output: Intake and Output for Last 24 Hours 01/22/24 01/23/24 01/24/24 23:59 23:59 23:59 Intake Total 289.17 / 289.17 Balance 289.17 / 289.17 Lab / Micro Data 01/24/24 05:40 01/24/24 05:40 Labs: Laboratory Results - last 24 hr 01/23/24 14:19: WBC 9.3, RBC 4.77, Hgb 15.0, Hct 46.2, MCV 96.9, MCH 31.4, MCHC 32.5, RDW Std Deviation 46.3 H, RDW Coeff of Negro 12.9, Plt Count 338, MPV 8.9, Immature Gran % (Auto) 0.200, Neut % (Auto) 61.2, Lymph % (Auto) 29.7, Morris % (Auto) 7.3, Eos % (Auto) 1.2, Baso % (Auto) 0.4, Absolute Neuts (auto) 5.7, Absolute Lymphs (auto) 2.77, Nucleated RBC % 0, PT 13.4, INR 1.0, APTT 24.0 L, Sodium 137, Potassium 3.3 L, Chloride 102, Carbon Dioxide 29.0, Anion Gap 6, BUN 9, Creatinine 0.72, Est GFR (MDRD) Af Amer 102, Est GFR (MDRD) Non-Af 84, BUN/Creatinine Ratio 12.5, Glucose 90, Hemoglobin A1c 5.4, Calcium 9.4 Radiography Diagnostic Testing: Radiology Impression Chest X-Ray 01/23/24 14:07 IMPRESSION: No acute cardiopulmonary process identified. Electronically Signed: Padam Lr MD at 15:15 EDT , Brain CT 01/23/24 16:45 IMPRESSION: Possible acute or subacute infarct left MCA territory. MRI would be helpful for further characterization. Electronically Signed: Haroon Moser MD at 17:36 EDT , Head/Neck CTA 01/23/24 19:02 IMPRESSION: Occlusion or near occlusion entire left internal carotid artery. Reconstitution at the petrous segment. Electronically Signed: Haroon Moser MD at 21:49 EDT , ADDENDUM: 01/23/24 2202 IMPRESSION: Occlusion or near occlusion entire left internal carotid artery. Reconstitution at the petrous segment. N.B. : The above Results were Read Back by Haroon Moser MD to Richard Martin MD, and understanding confirmed on 01/23/2024 21:55:32 (ET). Electronically Signed: Haroon Moser MD at 21:49 EDT , Physical Exam Narrative GENERAL: cooperative HEENT: Atraumatic; normocephalic EYES; Anicteric, Normal Conjunctiva NECK; supple, normal thyroid, RESPIRATORY: Diminished to auscultation CARDIOVASCULAR: Regular S1 S2, GI: soft, normoactive bowel sounds, : No Renal angle tenderness; EXTREMITIES: No edema, no clubbing, MUSCULOSKELETAL: no muscle wasting NEURO: Awake; ataxia involving right upper extremity with subjective weakness. SKIN: No Rash PSYCH; Flat affect Assessment & Plan Assessment/Plan (1) Confusion: (2) Acute ischemic left MCA stroke: PLAN: Plan Patient is a 73-year-old gentleman admitted with ataxia, subjective right upper extremity weakness and difficulty working. Imaging studies done in the ED demonstrated acute versus subacute left MCA CVA admitted to a monitored bed for further management 1. Acute left MCA stroke ? Patient was being noted TNK patient since she was outside the window. Imaging studies obtained demonstrated acute versus subacute left MCA CVA. Admitted to the intensive care unit started with aspirin high-dose intensity statin as well as Plavix. Echo and MRI ordered with consultation placed to telemetry neuro 2. Elevated blood pressure ? Will allow for permissive hypertension given patient acute CVA 3. Tobacco dependence ? Counseled on cessation, offered nicotine patch for tobacco cravings 4. Hypokalemia -Corrected per protocol 5. COPD ? Patient is on albuterol as needed 6. DVT prophylaxis ? On enoxaparin Time spent in the patient's overall evaluation,decision-making process, review of diagnostic data, adjustment of management, discussion with other providers, nursing nursing and ancillary staff involved in patient's care documentation, 52 Minutes Charges/Coding Visit Charges Inpatient E&M: 48892 [facility] L3
[2024-01-24 07:23] LABS: Absolute Lymphocyte Count 3.23 X10^3/uL (0.83-4.51); Absolute Neutrophil Count 5.4 X10^3/uL (2.0-7.7); Anion Gap 7 (5-15); BUN 11 mg/dL (7-18); BUN/Creat Ratio 18.4 RATIO (10-20); Basophil# 0.06 X10^3/uL; Basophil% 0.6 % (0-1); Chloride 105 mmol/L (98-107); Cholesterol 158 mg/dL (200); EST Glomerular Filtration Rate 105 mL/min (>60); Eosinophil# 0.16 X10^3/uL; Eosinophils% 1.7 % (0-5); Est Glom Filt Rate - Afr Amer 127 mL/min (>60); Glucose 93 mg/dL (74-106); Hematocrit 40.9 % (37-47); Hemoglobin 13.3 g/dL (12.0-15.0); High Density Lipoprotein 49 mg/dL; Lymphocyte # 3.23 X10^3/ul (0.83-4.51); Lymphocyte % 33.4 % (19-41); Mean Corp Hgb Conc 32.5 g/dL (32-36); Mean Corpuscular Hgb 31.1 pg (27.0-32.0); Mean Corpuscular Volume 95.8 fL (81-99); Mean Platelet Vol. 9.2 fl (6.2-12.0); Monocyte% 8.3 % (0-10); NRBC Flagged by Analyzer 0 % (0-5); Neutrophil % 55.7 % (47-70); Platelet Count 323 K/mm3 (150-450); Potassium 3.4 mmol/L (3.5-5.1); RBC Distribution Width CV 12.9 % (11.6-14.6); RBC Distribution Width SD 45.3 fl (35.1-43.9); Red Blood Count 4.27 M/mm3 (4.2-5.4); Sodium Level 138 mmol/L (136-145); Triglycerides 82 mg/dL; Very Low Density Lipoprotein 16 mg/dL (5-40); White Blood Count 9.7 K/mm3 (4.4-11.0)
--- NOTE | 2024-01-24 09:30 | MRI_ITS ---
HISTORY: stroke, CONFUSION. TECHNIQUE: Multiplanar and multisequence MR images of the brain were obtained without contrast. 286 images. COMPARISON: CT prior day. FINDINGS: BRAIN PARENCHYMA: Mild zones of restricted in the left posterior frontal, left parietal lobe, and insular cortex corresponding to acute infarct. Small zone of very mild restricted diffusion in the left frontal lobe near the ANNIE MCA watershed territory, more subacute in appearance. No acute intracranial hemorrhage identified. Chronic white matter changes. CSF SPACES: Cerebral ventricles, cortical sulci, and other extra-axial CSF spaces within normal limits in size for age. No significant midline shift or other mass effect.No extra-axial fluid collection. VASCULAR SYSTEM: Loss of the left internal carotid artery flow voids. PARANASAL SINUSES AND MASTOID AIR CELLS: No significant air fluid levels. ORBITS: Left lens resections. MRI/Brain without Contrast IMPRESSION: Acute and subacute left middle cerebral artery territory infarcts, corresponding to CT findings. Chronic small vessel ischemic gliosis. Left internal carotid artery occlusion, compatible with CTA findings. Electronically Signed: Padma Lr MD at 10:37 EDT ,
--- NOTE | 2024-01-24 10:08 | CASEMGMT ---
EVAN ROLLINS Assessment Face to Face with patient for initial transition planning/care coordination assessment. EVAN ROLLINS introduced self and role at [facility], pt voices understanding. Pt is A&Ox4 and is resting comfortably in bed and is calm. Pt at bedside. Care providers, pharmacy, and demographics verified. Admitting dx: Acute CVA LACE Strata: 2 PCP: Neo Merlos Specialists: Hien (Neuro). Pt has her first appt on Monday (01/25) [facility]acy[facility] Insurance: [employer] [facility] Prescription Benefit: Yes LNOK: Sky Mckayther (H) Living Arrangements: Pt lives with her and 2 Grandchildren (Ages 18 and 21) in a split level home with 8 steps to the upper portion and 7 steps to the lower portion with 8 steps to enter the house with handrails throughout. Pt denies issues using the steps ADLs/IADLs: States ind Transportation: Pt has a Hx of seizures so she does not drive. Pt drives DME: Access to a cane. denies all DME uses or needs. CM to follow for potential home oxygen HHC/SNF: Denies Hx Pt?s goal: Home with Plan: 6-click is 20. Pt states that she plans to DC home with her once she is medically ready. PT is pending. Pt states that it is too early to tell if she would like HHC or OP Tx set up. Pt denies SNF needs. CM to follow for new anticoag Rx. Pt denies further questions or concerns at this time. Christo Bee RN, CM
[2024-01-24 10:23] VITALS: BP 143/63; PULSE 63; RESP 17; TEMP 36; O2SAT 96
[2024-01-24] MEDS: Clopidogrel Bisulfate 75 MG Tablet PO (10:44)
[2024-01-24] MEDS: Aspirin E.C. 81 MG Tablet PO (10:44)
--- NOTE | 2024-01-24 13:55 | STROKE.CONS ---
Assessment and Plan: Stroke Assessment/Plan RADHA SURESH is a 73 F with a history of tobacco use who presents for evaluation of aphasia and confusion ,CTH with new L MCA stroke that is moderate. CTA with total occlusion of the LICA on my read but radiology with near total occlusion. Etiology of stroke is FELISHA. Will need to eval the carotid more closely to assess if there is any flow - if there is recommend transfer for surgical intervention and secondary stroke prevention. - Anti-platelet medication: Aspirin 81 mg daily + Plavix 75mg daily - recommend carotid US to eval the patency and flow of the LICA further - LDL 93, A1C 5.4 - atorvastatin 40mg daily - Occupational/ Physical therapy consults - NPO until swallow evaluation. IVF until able to take po - DVT prophylaxis with SCDs and heparin SQ - Vascular risk factor modification. The following are the recommended guidelines: LDL Goal < 70 Smoking Cessation Diabetes Management group home blood pressure control should achieve <130/80 mmHg. BP management should aim to achieve long term acute care registered nurse contorl in a reasonable amount of time, taking into consideration the individual patient's requirements and characteristics. Weight Management: Goal for BMI is 18.5 -24.9 kg/m2 Alcohol: No more than 2 drinks/day for men or 1 drink/day for non- women - Promote lifestyle modification: weight control, physical activity, moderation of alcohol intake, moderate sodium intake. Followup with PCP in 1-2 weeks, and in Neurology clinic in 6-12 weeks 45min spent evaluating patient, review chart, formulating medical plan, and discussing with primary team. HPI Consult Data Date of Consult: 01/25/24 HPI Narrative HPI Narrative: RADHA SURESH, is a 73 F with a PMH as outlined who presents via the ED on 01/23/2024 with a complaint of confusion. History was mainly taken from her who said patient had been having memory issues for several years. However, two days prior to admission, he noted that she was becoming more confused and couldnt follow instructions. He said she could not touch her nose or his hand with her finger and he also felt that she had some right-sided weakness though patient denied this. She had not had any headache, blurred vision, shortness of breath, chest pain or any other symptoms apart from the confusion. Patient was able to give some history and said she was brought to the hospital by her because he said she was getting forgetful; she however felt that at 73, she was allowed to be forgetful a bit and did not think she had any problem. Review of systems was otherwise negative. Patient is a 73-year-old gentleman admitted with ataxia, subjective right upper extremity weakness and difficulty working. Imaging studies done in the ED demonstrated acute versus subacute left MCA CVA admitted to a monitored bed for further management Neurologic History Pt states that she feels back to normal and feels a lot better, still with some aphasia. Never had stroke before. Does not take blood thinners daily. Only takes the aSA for pain and headache. Has bad migraines. She is emotional and upset as to why this has happened. She does smoke, used to smoke 1 ppd but now down to half ppd PFSH Medical History COVID-19 Home Medications ?Medication ?Instructions ?Recorded ?Last Taken ?Type diazepam 10 mg tablet (Valium) 10 mg PO BID PRN Anxiety 04/28/17 Unknown History aspirin 81 mg tablet,delayed 81 mg PO DAILY 12/02/21 Unknown History release (Adult Aspirin Regimen) albuterol sulfate 90 mcg/actuation 2 puff inhalation Q4H PRN 01/23/24 Unknown History aerosol inhaler shortness of breath or wheezing hydrocodone-acetaminophen 5-325mg 1 tab PO TID PRN PRN pain 01/23/24 Unknown History 5mg-325mg Allergy/AdvReac Type Severity Reaction Status Date / Time lactose Allergy Unknown Verified 01/23/24 13:21 Penicillins Allergy Unknown Verified 01/23/24 13:21 rizatriptan (From Maxalt) Allergy Vomiting Verified 01/23/24 13:21 ciprofloxacin (From Cipro) AdvReac Rash Verified 01/23/24 13:21 Surgical History History of back surgery Social History Smoking Status: Current every day smoker tobacco type: cigarettes Vital Signs Vital Signs Vital Signs: 01/23/24 16:34 01/23/24 16:34 01/23/24 17:00 Temperature Temperature Source Pulse Rate 89 Pulse Strength Respiratory Rate Respiratory Effort Respiratory Depth Respiratory Pattern Blood Pressure 157/69 H 146/68 H Blood Pressure Mean 98 94 Blood Pressure Source Blood Pressure Position Blood Pressure Location Pulse Ox Oxygen Delivery Method Room Air Oxygen Flow Rate (L/min) 01/23/24 18:00 01/23/24 19:00 01/23/24 19:48 Temperature 98.6 F Temperature Source Pulse Rate 65 Pulse Strength Respiratory Rate 20 H Respiratory Effort Respiratory Depth Respiratory Pattern Blood Pressure 113/98 H 158/65 H 151/102 H Blood Pressure Mean 103 96 118 Blood Pressure Source Blood Pressure Position Blood Pressure Location Pulse Ox 95 Oxygen Delivery Method Oxygen Flow Rate (L/min) 01/23/24 20:30 01/23/24 21:14 01/23/24 22:00 Temperature 97.7 F L Temperature Source Temporal Pulse Rate 66 Pulse Strength Normal (2+) Respiratory Rate 15 Respiratory Effort Normal Non-Labored Respiratory Depth Normal Respiratory Pattern Normal Blood Pressure 159/72 H Blood Pressure Mean 101 Blood Pressure Source Monitor Blood Pressure Position Semi-Fowlers Blood Pressure Location Right Arm Pulse Ox 95 Oxygen Delivery Method Room Air Oxygen Flow Rate (L/min) 01/24/24 00:30 01/24/24 02:47 01/24/24 04:30 Temperature 97.6 F L 97.2 F L Temperature Source Temporal Temporal Pulse Rate 82 73 Pulse Strength Respiratory Rate 20 H 19 H Respiratory Effort Normal Respiratory Depth Normal Respiratory Pattern Normal Blood Pressure 125/80 H 148/76 H Blood Pressure Mean 95 100 Blood Pressure Source Monitor Monitor Blood Pressure Position Semi-Fowlers Right Lateral Blood Pressure Location Right Arm Left Arm Pulse Ox 93 95 96 Oxygen Delivery Method Nasal Cannula Nasal Cannula Nasal Cannula Oxygen Flow Rate (L/min) 2 2 2 01/24/24 06:41 01/24/24 10:23 01/24/24 10:45 Temperature 96.8 F L Temperature Source Temporal Pulse Rate 63 Pulse Strength Respiratory Rate 17 Respiratory Effort Normal Non-Labored Respiratory Depth Normal Respiratory Pattern Normal Blood Pressure 143/63 H Blood Pressure Mean 89 Blood Pressure Source Monitor Blood Pressure Position Semi-Fowlers Blood Pressure Location Left Arm Pulse Ox 96 Oxygen Delivery Method Nasal Cannula Room Air Nasal Cannula Oxygen Flow Rate (L/min) 2 Weight Weight: 61.9 kg Body Mass Index (BMI) 25.0 NIHSS NIHSS Nursing Documentation NIHSS Nursing Documentation: NIH Stroke Scale Start: 01/23/24 16:36 Freq: Status: Discharge Protocol: Activity Type Activity Date Activity User E-sign Co-sign Detail Recorded Client Recorded Date Recorded By Document 01/23/24 16:40 HO [id number] 01/23/24 17:44 HO 01/23/24 16:40 NIH Stroke Scale [NIHSS] A score of 0 is normal or asymptomatic . Total possible score is 42. Inpatient: RN or Physician to activate a stroke alert for onset of new stroke symptoms or with NIHSS increase >/= 3 points. Following change in neurological status, NIHSS will be performed per physician order or more frequently PRN. -1a. Level of Consciousness Alert; keenly responsive -1b. LOC Questions Answers BOTH questions correctly. -1c. LOC Commands Performs both tasks correctly . -2. Best Gaze Partial gaze palsy; -3. Visual No visual loss -4. Facial Palsy Normal symmetrical movements -5a. Left Arm No drift; arm holds 90 (or 45 ) degrees for full 10 seconds -5b. Right Arm No drift; arm holds 90 (or 45 ) degrees for full 10 seconds -6a. Left Leg No drift; leg holds 30-degree position for full 5 seconds -6b. Right Leg No drift; leg holds 30-degree position for full 5 seconds -7. Limb Ataxia Present in 2 limbs -8. Sensory Normal; no sensory loss -9. Best Language No aphasia; normal -10. Dysarthria Normal -11. Extinction and Inattention No abnormality -Total 3 Query Text:A score of 0 is normal or asymptomatic. Total possible score is 42 . ED: Notify Physician for NIHSS increase by > / = 3 points. Inpatient: RN or Physician to activate a stroke alert for NIHSS increase of > / = 3 points. NIHSS: Ischemic Stroke/TIA Start: 01/23/24 20:16 Text: For PCU Patients: NIH and Neuro Check every 4 Status: Active hours, PRN and with change in RN caregiver. Freq: [id number] Protocol: Activity Type Activity Date Activity User E-sign Co-sign Detail Recorded Client Recorded Date Recorded By Document 01/24/24 10:45 [facility] [id number] 01/24/24 10:50 LRM 01/24/24 10:45 -1a. Level of Consciousness Alert; keenly responsive -1b. LOC Questions Answers BOTH questions correctly. -1c. LOC Commands Performs both tasks correctly . -2. Best Gaze Normal -3. Visual No visual loss -4. Facial Palsy Normal symmetrical movements -5a. Left Arm No drift; arm holds 90 (or 45 ) degrees for full 10 seconds -5b. Right Arm Drift; arm drifts downward but doesn?t hit the bed -6a. Left Leg No drift; leg holds 30-degree position for full 5 seconds -6b. Right Leg Drift; leg falls by the end of 5- seconds, but does not hit bed -7. Limb Ataxia Present in 1 limb -8. Sensory Mild-to- moderate sensory loss; -9. Best Language Mild-to- moderate aphasia; -10. Dysarthria Mild-to- moderate dysarthria; -11. Extinction and Inattention No abnormality -Total 6 Query Text:A score of 0 is normal or asymptomatic. Total possible score is 42 . ED: Notify Physician for NIHSS increase by > / = 3 points. Inpatient: RN or Physician to activate a stroke alert for NIHSS increase of > / = 3 points. NIHSS 1a. Level of Consciousness: Alert; keenly responsive 1b. LOC Questions: Answers one question correctly. 1c. LOC Commands: Performs both tasks correctly. 2. Best Gaze: Normal 3. Visual: No visual loss 4. Facial Palsy: Minor paralysis (flattened nasolabial fold, asymmetry on smiling) 5a. Left Arm: No drift; arm holds 90 (or 45) degrees for full 10 seconds 5b. Right Arm: Drift; arm drifts downward but doesn?t hit the bed 6a. Left Leg: No drift; leg holds 30-degree position for full 5 seconds 6b. Right Leg: Drift; leg falls by the end of 5-seconds, but does not hit bed 7. Limb Ataxia: Present in 2 limbs 8. Sensory: Normal; no sensory loss 9. Best Language: No aphasia; normal 10. Dysarthria: Normal 11. Extinction and Inattention: No abnormality Total: 6 Physical Exam Narrative -? General: Laying comfortably in bed; in no acute distress. -? HENT: Normal oropharynx and mucosa. Normal external appearance of ears and nose. Exophthalmos. -? Neck: Supple, no pain or tenderness -? CV:? No peripheral edema. -? Pulmonary:? Normal respiratory effort. -? Ext: No cyanosis, edema, or deformity -? Skin: No rash. Normal palpation of skin.? -? Musculoskeletal: full range of motion; no joint tenderness. Normal digits and nails by inspection. No clubbing. -? NEURO: -? Mental Status: The patient was alert and oriented to time, place, and person. Normal recent/remote memory, concentration, and general fund of knowledge. -? Language: speech is slurred.? Naming, repetition, fluency, and comprehension intact. -? Cranial Nerves: EOMI, visual santos full, no facial asymmetry, facial sensation intact -? Motor: RUE pronation and drift, RLE drift R L SA 4 5 EE EF WE [employer] 5 5 HF KE KF DF PF -? Tone: is normal and bulk is normal -? Sensation- Intact to light touch bilaterally -? Coordination: ataxia on the RUE and RLE -? Gait- deferred Lab / Micro Data 01/25/24 03:44 01/25/24 03:44 Labs: Laboratory Results - last 24 hr 01/23/24 14:19: WBC 9.3, RBC 4.77, Hgb 15.0, Hct 46.2, MCV 96.9, MCH 31.4, MCHC 32.5, RDW Std Deviation 46.3 H, RDW Coeff of Negro 12.9, Plt Count 338, MPV 8.9, Immature Gran % (Auto) 0.200, Neut % (Auto) 61.2, Lymph % (Auto) 29.7, [place] % (Auto) 7.3, Eos % (Auto) 1.2, Baso % (Auto) 0.4, Absolute Neuts (auto) 5.7, Absolute Lymphs (auto) 2.77, Nucleated RBC % 0, PT 13.4, INR 1.0, APTT 24.0 L, Sodium 137, Potassium 3.3 L, Chloride 102, Carbon Dioxide 29.0, Anion Gap 6, BUN 9, Creatinine 0.72, Est GFR (MDRD) Af Amer 102, Est GFR (MDRD) Non-Af 84, BUN/Creatinine Ratio 12.5, Glucose 90, Hemoglobin A1c 5.4, Calcium 9.4 01/24/24 05:40: WBC 9.7, RBC 4.27, Hgb 13.3, Hct 40.9, MCV 95.8, MCH 31.1, MCHC 32.5, RDW Std Deviation 45.3 H, RDW Coeff of Negro 12.9, Plt Count 323, MPV 9.2, Immature Gran % (Auto) 0.300, Neut % (Auto) 55.7, Lymph % (Auto) 33.4, [place] % (Auto) 8.3, Eos % (Auto) 1.7, Baso % (Auto) 0.6, Absolute Neuts (auto) 5.4, Absolute Lymphs (auto) 3.23, Nucleated RBC % 0, Sodium 138, Potassium 3.4 L, Chloride 105, Carbon Dioxide 26.0, Anion Gap 7, BUN 11, Creatinine 0.60, Estim Creat Clear Calc 54.20, Est GFR (MDRD) Af Amer 127, Est GFR (MDRD) Non-Af 105, BUN/Creatinine Ratio 18.4, Glucose 93, Calcium 9.0, Triglycerides 82, Cholesterol 158, LDL Cholesterol 93, VLDL Cholesterol 16, HDL Cholesterol 49 Imaging Radiology Impression Chest X-Ray 01/23/24 14:07 IMPRESSION: No acute cardiopulmonary process identified. Electronically Signed: Padma Lr MD at 15:15 EDT , Brain CT 01/23/24 16:45 IMPRESSION: Possible acute or subacute infarct left MCA territory. MRI would be helpful for further characterization. Electronically Signed: Haroon Moser MD at 17:36 EDT , Head/Neck CTA 01/23/24 19:02 IMPRESSION: Occlusion or near occlusion entire left internal carotid artery. Reconstitution at the petrous segment. Electronically Signed: Haroon Moser MD at 21:49 EDT Reading Location ID and State: [address] [place] [address] Tel , Service support , ADDENDUM: 01/23/24 2202 IMPRESSION: Occlusion or near occlusion entire left internal carotid artery. Reconstitution at the petrous segment. N.B. : The above Results were Read Back by Haroon Moser MD to Richard Martin MD, and understanding confirmed on 01/23/2024 21:55:32 (ET). Electronically Signed: Haroon Moser MD at 21:49 EDT Reading Location ID and State: [address] [place] [address] Tel , Service support , Echocardiogram 01/23/24 20:16 Interpretation Summary Normal LV size. Left ventricular systolic function is normal. The left ventricular ejection fraction is 70 %. Mild (1+) aortic valve insufficiency. Mild focal aortic valve thickening. Stage 1 diastolic dysfunction. Bubble contrast study negative for right to left interatrial shunt. Ordering Physician: Rekha Hilario Referring Physician: Neo Merlos Performed By: Deb Hdez, MALDONADO, RVT Brain MRI 01/24/24 09:30 IMPRESSION: Acute and subacute left middle cerebral artery territory infarcts, corresponding to CT findings. Chronic small vessel ischemic gliosis. Left internal carotid artery occlusion, compatible with CTA findings. Electronically Signed: Padma Lr MD at 10:37 EDT , Active Medications Active Medications Active Medications: Current Medications Generic Name Dose Route Start Last Admin Trade Name Freq PRN Reason Stop Dose Admin Acetaminophen 650 mg 01/23/24 20:16 Acetaminophen 325 Mg Tablet PO Q6H PRN PRN Pain 1-10 Or Fever >100.7 Hydrocodone Bitart/Acetaminophen 1 tablet 01/23/24 20:16 01/23/24 21:35 Hydrocodone Bitartrate/Apap 5/325 Tablet PO 1 tablet TID PRN PRN Administration Pain Score 1-3 Albuterol Sulfate 2.5 mg 01/23/24 20:33 Albuterol 2.5 Mg/3 Ml Vial.Neb. INHALATION Q4H PRN shortness of breath or wheezing Aspirin 81 mg 01/24/24 08:00 01/24/24 10:44 Aspirin E.C. 81 Mg Tablet PO 81 mg BREAKFAST JADEN Administration Atorvastatin Calcium 80 mg 01/23/24 22:00 01/23/24 21:18 Atorvastatin Calcium 80 Mg Tablet PO 80 mg QHS JADEN Administration Clopidogrel Bisulfate 75 mg 01/24/24 10:00 01/24/24 10:44 Clopidogrel Bisulfate 75 Mg Tablet PO 75 mg DAILY JADEN Administration Enoxaparin Sodium 40 mg 01/24/24 13:30 Enoxaparin 40 Mg/0.4 Ml Syringe SC DAILY JADEN Hydralazine HCl 5 mg 01/23/24 20:16 Hydralazine 20 Mg/Ml Vial IV 01/24/24 20:16 Q30M PRN maintain BP parameters with HR <60 Sodium Chloride 250 mls @ 15 mls/hr 01/23/24 20:22 IV .[id number] PRN Additional IVPB Infusion Sodium Chloride 250 mls @ 15 mls/hr 01/23/24 20:22 IV .[id number] PRN Saline Flush Labetalol HCl 10 - 20 mg 01/23/24 20:16 Labetalol (Prefilled) 20 Mg/4 Ml IV 01/24/24 20:16 Q10M PRN PRN maintain BP parameters with HR >/=60 Nitroglycerin 0.4 mg 01/23/24 20:16 Nitroglycerin (Inpatient Use) 0.4 Mg Tab.Subl SL Q5M PRN CARDIAC/CHEST PAIN Ondansetron HCl 4 mg 01/23/24 20:16 Ondansetron 4 Mg/2 Ml Vial IV Q8H PRN PRN NAUSEA/VOMITING Oxycodone HCl 2.5 - 5 mg 01/23/24 20:16 Oxycodone 5 Mg Tablet PO Q4H PRN PRN Pain Score 4-10 Sodium Chloride 10 - 40 ml 01/23/24 20:22 0.9% Saline Lock 10 Ml Syringe IV UD PRN SALINE FLUSH
--- NOTE | 2024-01-24 14:50 | CDU_ITS ---
Reason For Study: CVA Rt. Velocities/BP Lt. Velocities/BP Prox CCA 67.4/17.3 cm/sec. Prox CCA 36.0/5.4 cm/sec. Mid CCA 80.6/19.2 cm/sec. Mid CCA 46.0/5.4 cm/sec. Dist CCA 66.4/15.4 cm/sec. Dist CCA 34.6/6.1 cm/sec. Prox ICA 92.5/24.9 cm/sec. Prox ICA 0.0/0.0 cm/sec. Mid ICA 85.1/22.5 cm/sec. Mid ICA 0.0/0.0 cm/sec. Dist ICA 74.0/21.2 cm/sec. Dist ICA 0.0/0.0 cm/sec. Rt. ICA/CCA = 1.15. Lt. ICA/CCA = 0.0. Prox ECA 77.3/8.0 cm/sec. Prox ECA 86.9/6.6 cm/sec. Rt. Vert. 47.5/10.7 cm/sec. Lt. Vert. 70.7/15.5 cm/sec. Right Extracranial There is heterogeneous, irregular atherosclerotic plaque noted in the right common carotid artery. There is heterogeneous, irregular atherosclerotic plaque noted in the right internal carotid artery. There is heterogeneous, irregular atherosclerotic plaque noted in the right external carotid artery. Antegrade flow is noted in the right vertebral artery. Left Extracranial There is heterogeneous, irregular atherosclerotic plaque noted in the left common carotid artery. There is heterogeneous, irregular atherosclerotic plaque noted in the left internal carotid artery. The left internal carotid artery is occluded. There is heterogeneous, smooth atherosclerotic plaque noted in the left external carotid artery. Antegrade flow is noted in the left vertebral artery. Procedure Carotid Duplex [id number]. This is a Carotid Duplex examination using B-mode, color flow and specral Doppler. Exam performed portable in ICU/CCU. VL/Carotid Duplex Ultrasound Interpretation Summary Mild (<50%) stenosis right extracranial internal carotid. Occlusion of the left extracranial internal carotid. Patent and antegrade vertebrals bilaterally. Ordering Physician: Artis Edward Referring Physician: Neo Merlos Performed By: Gwen Foster RVT and Student
--- NOTE | 2024-01-24 15:01 | CASEMGMT ---
SW completed a PHQ9 with patient as she had a Stroke. Patient scored a 1 which indicates minimal depression. However, patient was very tearful off and on during conversation. Patient was upset she did not have her glasses. She can't see anything without her glasses. SW told patient SW will call her and ask if he can bring in her glasses. He said he will be back in, in about an hour and will bring her glasses. SW let patient know this information. 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
[2024-01-24 15:10] VITALS: BP 128/66; PULSE 61; RESP 18; TEMP 36.9; O2SAT 95
[2024-01-24] MEDS: Potassium Chloride Oral Tablet 20 MEQ 40 MEQ PO (15:51)
[2024-01-24] MEDS: diazePAM 5 MG Tablet 10 MG PO (15:51)
[2024-01-24] MEDS: Enoxaparin 40 MG/0.4 ML Syringe SC (15:51)
[2024-01-24 17:44] VITALS: BMI 25.0
[2024-01-24 19:45] VITALS: BP 146/68; PULSE 76; RESP 18; TEMP 36.6; O2SAT 94
[2024-01-24] MEDS: Atorvastatin Calcium 80 MG Tablet PO (22:17)
[2024-01-24 22:42] VITALS: BMI 25.0
[2024-01-25 02:30] VITALS: BP 160/61; PULSE 79; RESP 21; TEMP 36.6; O2SAT 93
[2024-01-25 04:27] LABS: Absolute Lymphocyte Count 2.41 X10^3/uL (0.83-4.51); Basophil# 0.03 X10^3/uL; Basophil% 0.3 % (0-1); Eosinophil# 0.11 X10^3/uL; Eosinophils% 1.2 % (0-5); Hematocrit 38.7 % (37-47); Hemoglobin 12.9 g/dL (12.0-15.0); Lymphocyte # 2.41 X10^3/ul (0.83-4.51); Lymphocyte % 25.9 % (19-41); Mean Corp Hgb Conc 33.3 g/dL (32-36); Mean Corpuscular Hgb 31.6 pg (27.0-32.0); Mean Corpuscular Volume 94.9 fL (81-99); Mean Platelet Vol. 9.1 fl (6.2-12.0); Monocyte# 0.77 X10^3/uL; Monocyte% 8.3 % (0-10); NRBC Flagged by Analyzer 0 % (0-5); Neutrophil # 5.95 X10^3/uL (2.7-7.7); Neutrophil % 64.1 % (47-70); Platelet Count 305 K/mm3 (150-450); RBC Distribution Width CV 12.7 % (11.6-14.6); RBC Distribution Width SD 44.4 fl (35.1-43.9); Red Blood Count 4.08 M/mm3 (4.2-5.4); White Blood Count 9.3 K/mm3 (4.4-11.0)
[2024-01-25 04:50] LABS: Anion Gap 6 (5-15); BUN 16 mg/dL (7-18); BUN/Creat Ratio 24.5 RATIO (10-20); Calcium,Total 9.1 mg/dL (8.5-10.1); Chloride 106 mmol/L (98-107); Creatinine, Serum 0.65 mg/dL (0.55-1.02); EST Glomerular Filtration Rate 94 mL/min (>60); Est Glom Filt Rate - Afr Amer 114 mL/min (>60); Glucose 115 mg/dL (74-106); Magnesium 2.1 mg/dL (1.6-2.6); Phosphorus 2.9 mg/dL (2.5-4.9); Potassium 3.6 mmol/L (3.5-5.1); Sodium Level 138 mmol/L (136-145)
--- NOTE | 2024-01-25 07:13 | PN.HOSP_ITS ---
Reason for Visit Reason for Visit: Diagnoses Cerebral infarction due to unspecified occlusion or stenosis of left middle cerebral artery (01/23/24) Disorientation, unspecified (01/23/24) Subjective Subjective patient MRI did not demonstrate Acute and subacute left middle cerebral artery territory infarcts, corresponding to CT findings. Chronic small vessel ischemic gliosis. Left internal carotid artery occlusion, compatible with CTA findings, subsequent carotid ultrasound did show Mild (<50%) stenosis right extracranial internal carotid. Occlusion of the left extracranial internal carotid. Patent and antegrade vertebrals bilaterally.. Consult subsequently placed to vascular surgery Dr. Fischer Objective Data Objective Data Vital Signs: Vital Signs Temp Pulse Resp BP Pulse Ox O2 Del Method O2 Flow Rate 97.9 F 79 21 H 160/61 H 93 Room Air 2 01/25/24 02:30 01/25/24 02:30 01/25/24 02:30 01/25/24 02:30 01/25/24 02:30 01/25/24 02:44 01/24/24 06:41 Oxygen Flow Rate (L/min) 2 Oxygen Delivery Method Room Air Weight: 61.9 kg Body Mass Index (BMI) 25.0 Intake & Output: Intake and Output for Last 24 Hours 01/23/24 01/24/24 01/25/24 23:59 23:59 23:59 Intake Total 289.17 / 289.17 200 / 200 Output Total 300 / 300 Balance 289.17 / 289.17 -100 / -100 Lab / Micro Data 01/25/24 03:44 01/25/24 03:44 Labs: Laboratory Results - last 24 hr 01/24/24 05:40: WBC 9.7, RBC 4.27, Hgb 13.3, Hct 40.9, MCV 95.8, MCH 31.1, MCHC 32.5, RDW Std Deviation 45.3 H, RDW Coeff of Negro 12.9, Plt Count 323, MPV 9.2, Immature Gran % (Auto) 0.300, Neut % (Auto) 55.7, Lymph % (Auto) 33.4, [place] % (Auto) 8.3, Eos % (Auto) 1.7, Baso % (Auto) 0.6, Absolute Neuts (auto) 5.4, Absolute Lymphs (auto) 3.23, Nucleated RBC % 0, Sodium 138, Potassium 3.4 L, Chloride 105, Carbon Dioxide 26.0, Anion Gap 7, BUN 11, Creatinine 0.60, Estim Creat Clear Calc 54.20, Est GFR (MDRD) Af Amer 127, Est GFR (MDRD) Non-Af 105, BUN/Creatinine Ratio 18.4, Glucose 93, Calcium 9.0, Triglycerides 82, Cholesterol 158, LDL Cholesterol 93, VLDL Cholesterol 16, HDL Cholesterol 49 01/25/24 03:44: WBC 9.3, RBC 4.08 L, Hgb 12.9, Hct 38.7, MCV 94.9, MCH 31.6, MCHC 33.3, RDW Std Deviation 44.4 H, RDW Coeff of Negro 12.7, Plt Count 305, MPV 9.1, Immature Gran % (Auto) 0.200, Neut % (Auto) 64.1, Lymph % (Auto) 25.9, [place] % (Auto) 8.3, Eos % (Auto) 1.2, Baso % (Auto) 0.3, Absolute Neuts (auto) 6.0, Absolute Lymphs (auto) 2.41, Nucleated RBC % 0, Sodium 138, Potassium 3.6, Chloride 106, Carbon Dioxide 26.0, Anion Gap 6, BUN 16, Creatinine 0.65, Estim Creat Clear Calc 54.20, Est GFR (MDRD) Af Amer 114, Est GFR (MDRD) Non-Af 94, B UN/Creatinine Ratio 24.5 H, Glucose 115 H, Calcium 9.1, Phosphorus 2.9, Magnesium 2.1 Radiography Diagnostic Testing: Radiology Impression Echocardiogram 01/23/24 20:16 Interpretation Summary Normal LV size. Left ventricular systolic function is normal. The left ventricular ejection fraction is 70 %. Mild (1+) aortic valve insufficiency. Mild focal aortic valve thickening. Stage 1 diastolic dysfunction. Bubble contrast study negative for right to left interatrial shunt. Ordering Physician: Rekha Hilario Referring Physician: Neo Merlos Performed By: Deb Hdez RDCS, RVT Brain MRI 01/24/24 09:30 IMPRESSION: Acute and subacute left middle cerebral artery territory infarcts, corresponding to CT findings. Chronic small vessel ischemic gliosis. Left internal carotid artery occlusion, compatible with CTA findings. Electronically Signed: Padma Lr MD at 10:37 EDT , Carotid Duplex 01/24/24 14:50 Interpretation Summary Mild (<50%) stenosis right extracranial internal carotid. Occlusion of the left extracranial internal carotid. Patent and antegrade vertebrals bilaterally. Ordering Physician: Artis Edward Referring Physician: Neo Merlos Performed By: Kristin MATIAS Gwen and Student Physical Exam Narrative GENERAL: cooperative HEENT: Atraumatic; normocephalic EYES; Anicteric, Normal Conjunctiva NECK; supple, normal thyroid, RESPIRATORY: Diminished to auscultation CARDIOVASCULAR: Regular S1 S2, GI: soft, normoactive bowel sounds, : No Renal angle tenderness; EXTREMITIES: No edema, no clubbing, MUSCULOSKELETAL: no muscle wasting NEURO: Awake; ataxia involving right upper extremity with subjective weakness. SKIN: No Rash PSYCH; Flat affect Assessment & Plan Assessment/Plan (1) Confusion: (2) Acute ischemic left MCA stroke: PLAN: Plan Patient is a 73-year-old gentleman admitted with ataxia, subjective right upper extremity weakness and difficulty working. Imaging studies done in the ED demonstrated acute versus subacute left MCA CVA admitted to a monitored bed for further management 1. Acute left MCA stroke ? Patient was being noted TNK patient since she was outside the window. Imaging studies obtained demonstrated acute versus subacute left MCA CVA. Admitted to the intensive care unit started with aspirin high-dose intensity statin as well as Plavix. Echo and MRI ordered with consultation placed to telemetry neuro ? 01/25/2024 patient MRI did not demonstrate Acute and subacute left middle cerebral artery territory infarcts, corresponding to CT findings. Chronic small vessel ischemic gliosis. Left internal carotid artery occlusion, compatible with CTA findings, subsequent carotid ultrasound did show Mild (<50%) stenosis right extracranial internal carotid. Occlusion of the left extracranial internal carotid. Patent and antegrade vertebrals bilaterally.. Consult subsequently placed to vascular surgery Dr. Fischer. Patient was also seen and assessed by therapy they recommended further skilled therapy on discharge 2. Elevated blood pressure ? Will allow for permissive hypertension given patient acute CVA 3. Tobacco dependence ? Counseled on cessation, offered nicotine patch for tobacco cravings 4. Hypokalemia -Corrected per protocol 5. COPD ? Patient is on albuterol as needed 6. DVT prophylaxis ? On enoxaparin Time spent in the patient's overall evaluation,decision-making process, review of diagnostic data, adjustment of management, discussion with other providers, nursing nursing and ancillary staff involved in patient's care documentation, 50 Minutes Charges/Coding Visit Charges Inpatient E&M: 56951 [facility] Hosp L3
[2024-01-25 08:22] VITALS: O2SAT 92
[2024-01-25 08:30] VITALS: BP 137/63; PULSE 78; RESP 18; TEMP 36.4; O2SAT 92
--- NOTE | 2024-01-25 09:43 | EX.PCM.CON.S ---
Assessment & Plan Assessment/Plan (1) Acute ischemic left MCA stroke: (2) Occlusion of left internal carotid artery: PLAN: Plan Patient does have total occlusion of the left internal carotid artery. It is likely that this occlusion event is also what led to her present left-sided infarcts. At this point, given total occlusion there is no indication for surgical intervention. Recommend maximizing medical therapy as per neurology recommendations. Contralateral right ICA with minimal stenosis. Plan is for routine surveillance imaging on an outpatient basis. Will arrange for outpatient follow-up in the office. HPI Consult Data Date of Consult: 01/25/24 HPI Narrative HPI Narrative: RADHA SURESH, is a 73 F who presented to the [facility] ER with a 2-3 day history of increased confusion and some R sided weakness. In the ER, head CT suggested acute to subacute infarct in the left MCA territory. She was admitted for further workup. Subsequent brain MRI confirmed acute and subacute left MCA territory infarcts. Head and neck CTA suggested near or total occlusion of the left internal carotid artery. A carotid duplex was obtained which confirmed total occlusion of the left internal carotid artery. Carotid duplex suggested less than 50% stenosis of the right internal carotid artery. [facility] Medical History COVID-19 Home Medications ?Medication ?Instructions ?Recorded ?Last Taken ?Type diazepam 10 mg tablet (Valium) 10 mg PO BID PRN Anxiety 04/28/17 Unknown History aspirin 81 mg tablet,delayed 81 mg PO DAILY 12/02/21 Unknown History release (Adult Aspirin Regimen) albuterol sulfate 90 mcg/actuation 2 puff inhalation Q4H PRN 01/23/24 Unknown History aerosol inhaler shortness of breath or wheezing hydrocodone-acetaminophen 5-325mg 1 tab PO TID PRN PRN pain 01/23/24 Unknown History 5mg-325mg atorvastatin 80 mg tablet 80 mg PO QHS #90 tabs 01/25/24 Unknown Rx clopidogrel 75 mg tablet 75 mg PO DAILY #21 tabs 01/25/24 Unknown Rx Allergy/AdvReac Type Severity Reaction Status Date / Time lactose Allergy Unknown Verified 01/23/24 13:21 Penicillins Allergy Unknown Verified 01/23/24 13:21 rizatriptan (From Maxalt) Allergy Vomiting Verified 01/23/24 13:21 ciprofloxacin (From Cipro) AdvReac Rash Verified 01/23/24 13:21 Surgical History History of back surgery Social History Smoking Status: Current every day smoker tobacco type: cigarettes Physical Exam Const alert, oriented x3 and no apparent distress General Appearance: cooperative HEENT normocephalic, head/scalp atraumatic, hearing grossly normal bilaterally, external ears normal and external nose normal Eyes EOMs intact bilaterally General Eye: normal appearance of both eyes Neck General: normal visual inspection and trachea midline Resp normal respiratory effort, no retractions and no use of accessory muscles Effort and Inspection: able to speak in complete sentences Cardio regular rate and regular rhythm Extremity normal to inspection and no clubbing, cyanosis or edema Skin no rashes or lesions noted and no wounds Neuro oriented x3, CN's II-XII intact bilaterally and moves all extremities Neuro Narrative: Some right-sided ataxia Psych Appearance: grossly normal Speech: normal speech Mood & Affect: anxious Lab / Micro Data 01/25/24 03:44 01/25/24 03:44 Labs: Laboratory Results - last 24 hr 01/25/24 03:44: WBC 9.3, RBC 4.08 L, Hgb 12.9, Hct 38.7, MCV 94.9, MCH 31.6, MCHC 33.3, RDW Std Deviation 44.4 H, RDW Coeff of Negro 12.7, Plt Count 305, MPV 9.1, Immature Gran % (Auto) 0.200, Neut % (Auto) 64.1, Lymph % (Auto) 25.9, [place] % (Auto) 8.3, Eos % (Auto) 1.2, Baso % (Auto) 0.3, Absolute Neuts (auto) 6.0, Absolute Lymphs (auto) 2.41, Nucleated RBC % 0, Sodium 138, Potassium 3.6, Chloride 106, Carbon Dioxide 26.0, Anion Gap 6, BUN 16, Creatinine 0.65, Estim Creat Clear Calc 54.20, Est GFR (MDRD) Af Amer 114, Est GFR (MDRD) Non-Af 94, BUN/Creatinine Ratio 24.5 H, Glucose 115 H, Calcium 9.1, Phosphorus 2.9, Magnesium 2.1 Imaging Radiology Impression Echocardiogram 01/23/24 20:16 Interpretation Summary Normal LV size. Left ventricular systolic function is normal. The left ventricular ejection fraction is 70 %. Mild (1+) aortic valve insufficiency. Mild focal aortic valve thickening. Stage 1 diastolic dysfunction. Bubble contrast study negative for right to left interatrial shunt. Ordering Physician: Rekha Hilario Referring Physician: Neo Merlos Performed By: Deb Hdez RDCS, FLORENCIO Brain MRI 01/24/24 09:30 IMPRESSION: Acute and subacute left middle cerebral artery territory infarcts, corresponding to CT findings. Chronic small vessel ischemic gliosis. Left internal carotid artery occlusion, compatible with CTA findings. Electronically Signed: Padma Lr MD at 10:37 EDT , Carotid Duplex 01/24/24 14:50 Interpretation Summary Mild (<50%) stenosis right extracranial internal carotid. Occlusion of the left extracranial internal carotid. Patent and antegrade vertebrals bilaterally. Ordering Physician: Artis Edward Referring Physician: Neo Merlos Performed By: Kary Foster RVTah and Student Charges/Coding Visit Charges Inpatient E&M: 89308 Init Hosp L2
[2024-01-25] MEDS: Clopidogrel Bisulfate 75 MG Tablet PO (10:01)
[2024-01-25] MEDS: Aspirin E.C. 81 MG Tablet PO (10:01)
[2024-01-25] MEDS: Enoxaparin 40 MG/0.4 ML Syringe SC (10:01)
--- NOTE | 2024-01-25 10:23 | NURSING ---
patient refusing to cooperate with [facility] assessment.
--- NOTE | 2024-01-25 12:08 | CASEMGMT ---
Social Work SW met with pt and her Sky to discuss discharge plan. SW explained pt's progress with therapy and recommendations for short term rehab prior to returning home. Pt adamantly refusing to go to rehab and feels she can return home. Pt spouse in agreement with pt. Spouse is retired and states he can provide 24 hour care and transportation. SW spoke with pt regarding outpt therapy and pt and spouse agreeable to this. Outpt options presented and preferred provider is [facility]. Pt is currently on oxygen and states she does not have oxygen at home. RNCM updated and to follow up. EMILIA Shannon
--- NOTE | 2024-01-25 12:26 | DS.PCM_ITS ---
Providers Date of Admission: 01/23/24 Date of Discharge: 01/25/24 Primary Care Physician: Dr. Neo Merlos, Consultations 01/23/24 20:16 Consult: Tele-Neurology Routine Consulting Provider: [facility] Reason for Consult: Acute Ischemic Stroke/TIA EMERGENT Consult: No Notified: Yes Date Notified: 01/23/24 Time Notified: 18:59 Method of Notification: Answering Service Nursing Unit Staff Notify [facility] of Tele-Neurology Consult: Yes 01/25/24 07:12 Consult: Vascular Surgery Routine Consulting Provider: Haris Fischer Reason for Consult: carotid artery occlussion EMERGENT Consult: No Notified: Yes Date Notified: 01/25/24 Time Notified: 07:13 Method of Notification: Verbal Reason For Visit: ACUTE CVA Diagnosis Discharge Diagnosis (1) Confusion: Status: Acute Code(s): R41.0 - Disorientation, unspecified (2) Acute ischemic left MCA stroke: Status: Acute Code(s): I63.512 - Cerebral infarction due to unspecified occlusion or stenosis of left middle cerebral artery Plan Patient is a 73-year-old gentleman admitted with ataxia, subjective right upper extremity weakness and difficulty working. Imaging studies done in the ED demonstrated acute versus subacute left MCA CVA admitted to a monitored bed for further management 1. Acute left MCA stroke ? Patient did not receive TNK patient since she was outside the window. Imaging studies obtained demonstrated acute versus subacute left MCA CVA. Admitted to the intensive care unit started with aspirin high-dose intensity statin as well as Plavix. Echo and MRI ordered with consultation placed to telemetry neuro ? 01/25/2024 patient MRI did not demonstrate Acute and subacute left middle cerebral artery territory infarcts, corresponding to CT findings. Chronic small vessel ischemic gliosis. Left internal carotid artery occlusion, compatible with CTA findings, subsequent carotid ultrasound did show Mild (<50%) stenosis right extracranial internal carotid. Occlusion of the left extracranial internal carotid. Patent and antegrade vertebrals bilaterally.. Consult subsequently placed to vascular surgery Dr. Fischer. Patient was also seen and assessed by therapy they recommended further skilled therapy on discharge. Patient opted to go with outpatient therapy. Patient was to follow-up with Dr. Mobley with vascular surgery as well as [facility] neurology clinic 2. Elevated blood pressure ? Will allow for permissive hypertension given patient acute CVA 3. Tobacco dependence ? Counseled on cessation, offered nicotine patch for tobacco cravings 4. Hypokalemia -Corrected per protocol 5. COPD ? Patient is on albuterol as needed 6. DVT prophylaxis ? On enoxaparin Time spent in the patient's overall evaluation,decision-making process, review of diagnostic data, adjustment of management, discussion with other providers, nursing nursing and ancillary staff involved in patient's care documentation, 50 Minutes Medications at Discharge Home Medications diazepam 10 mg tablet (Valium) 10 mg PO BID PRN Anxiety 04/28/17 aspirin 81 mg tablet,delayed release (Adult Aspirin Regimen) 81 mg PO DAILY 12/02/21 albuterol sulfate 90 mcg/actuation aerosol inhaler 2 puff inhalation Q4H PRN shortness of breath or wheezing 01/23/24 hydrocodone-acetaminophen 5-325mg 5mg-325mg 1 tab PO TID PRN PRN pain 01/23/24 atorvastatin 80 mg tablet 80 mg PO QHS #90 tabs 01/25/24 clopidogrel 75 mg tablet 75 mg PO DAILY #21 tabs 01/25/24 Physical Exam Narrative GENERAL: cooperative HEENT: Atraumatic; normocephalic EYES; Anicteric, Normal Conjunctiva NECK; supple, normal thyroid, RESPIRATORY: Diminished to auscultation CARDIOVASCULAR: Regular S1 S2, GI: soft, normoactive bowel sounds, : No Renal angle tenderness; EXTREMITIES: No edema, no clubbing, MUSCULOSKELETAL: no muscle wasting NEURO: Awake; ataxia involving right upper extremity with subjective weakness. SKIN: No Rash PSYCH; Flat affect Weight / BMI Weight Weight: 61.9 kg Body Mass Index (BMI) 25.0 ABG / Lab / Microbiology Data 01/25/24 03:44 01/25/24 03:44 Laboratory: Laboratory Results - last 24 hr 01/25/24 03:44: WBC 9.3, RBC 4.08 L, Hgb 12.9, Hct 38.7, MCV 94.9, MCH 31.6, MCHC 33.3, RDW Std Deviation 44.4 H, RDW Coeff of Negro 12.7, Plt Count 305, MPV 9.1, Immature Gran % (Auto) 0.200, Neut % (Auto) 64.1, Lymph % (Auto) 25.9, [place] % (Auto) 8.3, Eos % (Auto) 1.2, Baso % (Auto) 0.3, Absolute Neuts (auto) 6.0, Absolute Lymphs (auto) 2.41, Nucleated RBC % 0, Sodium 138, Potassium 3.6, Chloride 106, Carbon Dioxide 26.0, Anion Gap 6, BUN 16, Creatinine 0.65, Estim Creat Clear Calc 54.20, Est GFR (MDRD) Af Amer 114, Est GFR (MDRD) Non-Af 94, B UN/Creatinine Ratio 24.5 H, Glucose 115 H, Calcium 9.1, Phosphorus 2.9, Magnesium 2.1 Radiography Diagnostic Testing: Radiology Impression Carotid Duplex 01/24/24 14:50 Interpretation Summary Mild (<50%) stenosis right extracranial internal carotid. Occlusion of the left extracranial internal carotid. Patent and antegrade vertebrals bilaterally. Ordering Physician: Artis Edward Referring Physician: Neo Merlos Performed By: Gwen Foster RVT and Student D/C Instructions Discharge Diet: Low fat / Low cholesterol Discharge Activity: Return to Normal Activity Call your doctor if you observe: Fever of 101 or Higher, Shortness of breath, Fainting spells and Chest pain Meaningful Use Info Meaningful Use Meaningful Use Diagnoses (Choose all that apply): Ischemic CVA CVA Therapy Assessed for PT,OT and/or ST?: Yes Ischemic Stroke Antithrombotic order at d/c?: Yes Dx of Atrial fib/flutter?: No Statin Dosing Therapy Reference: STATIN DOSE THERAPY REFERENCE: * Patients > 75 years receive moderate or high dose statin therapy. * Patients 75 years or YOUNGER should receive HIGH intensity statin dose unless contraindicated. You will be required to document reason for non-treatment if statin daily dose does not meet guidelines. HIGH DOSE STATIN THERAPY DAILY Atorvastatin > than or = to 40 mg Rosuvastatin > than or = to 20 mg Amlodipine + Atorvastatin > than or = to 2.5/40 mg Ezetimibe + Simvastatin 10/80 mg Simvastatin 80mg Statins at discharge?: Yes If patient is 75 or younger, pt will be discharged on HIGH intensity statin.: Y es Primary Dx Acute Ischemic CVA?: Yes IV thrombolytic ordered during stay?: No Reason IV thrombolytic not ordered: Treatment not Indicated Discharge Plan Admission Admit Date/Time: 01/23/24 18:57 Attending Provider: Artis Edward Primary Care Provider: Neo Merlos Consulting Providers: Rekha Hilario; Ankit Contreras; Garret Bustos; Abi Salter; Dimple Whitehead; Celia Pinedo; Elier Huggins; Candace Fournier; Zain Dickey; Gabe Cadroso; Aaron Man; Jia Gutiérrez; Ciaran Mena; Mindi Garcia; Caridad Troy; Nesha Green; Naseem Hutton; Ariana Durham; Howard Velarde; Virginie Reardon; Gume Hampton; Haris Fischer Instructions Patient Instructions: Preparing Your Home After Stroke, Stroke: Self-Care, Stroke Self Care After Discharge Orders/Prescriptions Prescriptions: New atorvastatin 80 mg Tablet 80 mg PO QHS Qty: 90 0RF clopidogrel 75 mg Tablet 75 mg PO DAILY Qty: 21 0RF Continued aspirin [Adult Aspirin Regimen] 81 mg tablet,delayed release (DR/EC) 81 mg PO DAILY Patient Comments: pt. states she has not taken any medications for months diazepam [Valium] 10 MG tablet 10 mg PO BID PRN (Reason: Anxiety) Patient Comments: pt. states she has not taken any medications for months hydrocodone-acetaminophen 5-325 mg tablet 1 tab PO TID PRN PRN (Reason: pain) Patient Comments: PT STATES SHE HASNT TAKEN IN ABOUT A MONTH, BUT HAS TO KEEP CALLING MD FOR REFILLS albuterol sulfate 90 mcg/actuation HFA aerosol inhaler 2 puff inhalation Q4H PRN (Reason: shortness of breath or wheezing) Patient Comments: FAMILY SAYS SHE USES A LOT. PT STATES SHE USES IT EVERY NIGHT. Referrals / Follow Up: Celia Pinedo MD [Med Staff - Contracted] - See Referral Note (Within 6 to 12 weeks at the [facility] neurology [facility]) Haris Fischer MD [Med Staff - Active Staff] - Within 1 Week Neo Merlso DO [Primary Care Provider] - Within 1 Week Disposition Disposition (needs filled in before D/C Order can be placed): Home, Self Care Charges/Coding Visit Charges Inpatient E&M: 61421 Disch Hosp >30min
[2024-01-25 12:38] VITALS: O2SAT 90
[2024-01-25 12:39] VITALS: O2SAT 86; O2SAT 92; O2SAT 94; O2SAT 96
[2024-01-25 13:15] VITALS: O2SAT 91
--- NOTE | 2024-01-25 13:17 | CASEMGMT ---
SW states that the pt is adamant about returning home with her and that she is refusing to go to any type of rehabilitation facility. See SW note. This RN CM to pt room at this time. Pt states that she would like to attend OP Tx through [facility] and that she will set up her own appt. Rx for OP PT/OT signed by Dr. Edward and given to the pt. Copy placed on pt chart. Pt also qualifies for Home Oxygen (2L w/ exertion). A verbal list of local in-network DME companies provided to the pt at this time. Pt states that her has a PAP through [facility] and that she prefers [facility] at this time. Rx signed by Dr. Edward. O2 Rx, testing results, and DC summary with appropriate documentation sent to [facility] at this time via [employer]. There is currently no [facility] hospital liaison so anticipate needing to take a tank from stock. Awaiting return response from [facility]. Pt RN states that she will be able to provide the pt with a tank and educate the pt. Pt educated by this RN CM to call [facility] once she arrives home for them to deliver the concentrator. Pt states understanding and denies further questions or concerns and is ready for DC home. Pt RN updated. DC plan updated. PLAN: DC home with with oxygen and to f/u with OP Therapy.
== END 2024-01-25 13:57 | disposition home or self-care (01) | DRG 66 ==
LOC: ED 18:54 → ICU 01-24 01:36
PROVIDERS: Admitting Provider Student in an Organized Health Care Education/Training Program; Emergency Provider Emergency Medicine; PCP Family Medicine; Visit Provider Internal Medicine
DX: I63.512 Cerebral infarction due to unspecified occlusion or stenosis of left middle cerebral artery (principal); E87.6 Hypokalemia; J44.9 Chronic obstructive pulmonary disease, unspecified; I65.22 Occlusion and stenosis of left carotid artery; F17.210 Nicotine dependence, cigarettes, uncomplicated; I69.310 Attention and concentration deficit following cerebral infarction; R41.0 Disorientation, unspecified; R03.0 Elevated blood-pressure reading, without diagnosis of hypertension
CPT/HCPCS: 36415; 70450; 70496; 70498; 70551; 71045; 80048; 80061; 83036; 83735; 84100; 85025; 85610; 85730; 92523; 93005; 93306; 93880; 94762; 97116; 97162; 97166; 97530; 97535; 99285; Q9967

== ENCOUNTER 2024-02-04 13:34 | Emergency (ER) | payer MEDICARE, SELFPAY ==
[2024-02-04 13:35] VITALS: BP 120/100; PULSE 90; RESP 18; TEMP 36.3; O2SAT 95; BMI 24.5
--- NOTE | 2024-02-04 15:41 | EX.ED.UPPERE ---
HPI <Dr. Haim Valdez DO - Last Filed: 02/04/24 15:43> History of Present Illness Chief Complaint: Laceration <FANI Petty - Last Filed: 02/04/24 16:01> Narrative Narrative: Patient is a 73-year-old female with history of CVA, ACS who is on Plavix who [facility] for a laceration of the distal tip of the right index finger. This was done on a cat food can. Patient's tetanus vaccination within 5 years. This happened at 9 AM, she still continues to ooze blood, and she is concerned. Denies any other injury. [facility] <Dr. Haim Valdez DO - Last Filed: 02/04/24 15:43> [facility] Medical History COVID-19 Home Medications ?Medication ?Instructions ?Recorded ?Last Taken ?Type diazepam 10 mg tablet (Valium) 10 mg PO BID PRN Anxiety 04/28/17 Unknown History aspirin 81 mg tablet,delayed 81 mg PO DAILY 12/02/21 Unknown History release (Adult Aspirin Regimen) albuterol sulfate 90 mcg/actuation 2 puff inhalation Q4H PRN 01/23/24 Unknown History aerosol inhaler shortness of breath or wheezing hydrocodone-acetaminophen 5-325mg 1 tab PO TID PRN PRN pain 01/23/24 Unknown History 5mg-325mg atorvastatin 80 mg tablet 80 mg PO QHS #90 tabs 01/25/24 Unknown Rx clopidogrel 75 mg tablet 75 mg PO DAILY #21 tabs 01/25/24 Unknown Rx Allergy/AdvReac Type Severity Reaction Status Date / Time lactose Allergy Unknown Verified 02/04/24 13:34 Penicillins Allergy Unknown Verified 02/04/24 13:34 rizatriptan (From Maxalt) Allergy Vomiting Verified 02/04/24 13:34 ciprofloxacin (From Cipro) AdvReac Rash Verified 02/04/24 13:34 Surgical History History of back surgery Social History Smoking Status: Current every day smoker tobacco type: cigarettes ROS <FANI Petty - Last Filed: 02/04/24 16:01> ROS ED ROS Narrative Constitutional: Negative for fever, chills, weight loss, weakness Eyes: Negative for vision loss, vision change, double vision ENT: Negative for any sore throat, ear pain, congestion Cardiovascular: Negative for any chest pain, tightness, palpitations Respiratory: Negative for any cough, sputum production, hemoptysis, dyspnea, dyspnea on exertion, orthopnea Gastrointestinal: Negative for any abdominal pain, nausea, vomiting, diarrhea, constipation, blood in stool, blood in vomit : Negative for any urinary frequency, dysuria, retention, blood in urine Muscle skeletal: Negative for any neck pain, back pain Neurological: Negative for any headache, syncope, dizziness Skin: Negative for any rashes, itching, abrasions. Positive for laceration of distal tip of the right index finger Psychiatric: Negative for any depression, anxiety, stress, suicidal ideation, homicidal ideation Hematologic: Negative for any excessive bruising, easy bleeding EXAM <Dr. Haim Valdez DO - Last Filed: 02/04/24 15:43> Physical Exam Const Vital Signs: 02/04/24 13:35 Temperature 97.3 F L Temperature Source Temporal Pulse Rate 90 Respiratory Rate 18 Blood Pressure 120/100 H Blood Pressure Mean 106 Pulse Ox 95 Oxygen Delivery Method Room Air <FANI Petty - Last Filed: 02/04/24 16:01> Physical Exam Narrative Exam Narrative: Vital signs reviewed. Extremities: No peripheral edema, no signs of gross trauma or deformity. Active full range of motion of all extremities. Patient does have a 1 cm laceration distal tip of the right index finger. This is slightly superficial however does continue to ooze. This might need 1 or 2 sutures. Full range of motion, no neurological or focal deficit Neuro: Cranial nerves II through XII intact, no focal neurological deficits. Skin: Clean dry and intact with no rash, purpura, petechiae, vesicles or pustules. Backs/flank: No CVA tenderness, no midline spinal tenderness, no deformity. Psych: Normal mood and affect. No SI, HI or acute psychosis. [facility] <Dr. Haim Valdez DO - Last Filed: 02/04/24 15:43> [facility] Narrative Medical decision making narrative: I have personally performed a face to face assessment of the patient and have reviewed the MINNIE Note. I performed a substantive portion of the visit including all aspects of the following. My valdez findings include: History is [patient presents to the emergency department with laceration to the right index finger that occurred this morning at 9 AM. Patient states that she was opening up a can of cat food when she lacerated her finger. She is right-hand dominant. Up-to-date on tetanus. Patient states that she is on Plavix unable to stop bleeding.] Exam is [HEENT-PERRLA, EOMI. Cranial nerves II through XII grossly intact. TMs clear. Mucous membranes moist. No adenopathy. Cardiovascular-regular rate and rhythm without murmur or ectopy Lungs-clear to auscultation, chest wall stable without crepitus or subcu emphysema Abdomen-normoactive bowel sounds, soft, nontender, no rebound or rigidity, no peritoneal signs. Extremities-intact ?4, normal range of motion, normal pulses. Right index finger-patient has a 1 cm laceration to the distal pulp just proximal to the nail. Small amount of venous oozing.] Medical Decison Making [patient with laceration that continuing to ooze and will not stop bleeding. She is on Plavix. Patient will have suture repair please see procedure note performed by physician virtual assistant for [employer]. Patient have sutures removed in 10 days by her primary care physician. She is to return if increasing pain, redness, swelling, purulent drainage, or condition should worsen anyway.] Other additions or changes: [None] <FANI Petty - Last Filed: 02/04/24 16:01> [facility] Treatment and Re-Evaluation Narrative: Differential diagnosis includes however is not limited to: Superficial laceration, full thick laceration foreign body, simple laceration Patient appears to be in no obvious distress, vital signs are stable, patient is nontoxic-appearing. Presenting to the emergency department complaints of a distal finger laceration. This was 1 cm in length. It did continue to ooze, at this time, did use a local anesthetic, lidocaine 1%. Patient responded well, was able to place 2 simple interrupted sutures of 6-0 Ethilon. Edges approximated nicely. The bleeding did stop. Dressing will be applied. Patient will have these removed in 7 days. Stable for discharge. Discharge Plan Triage Chief Complaint: Laceration ED Midlevel Provider: Yoni Gross ED Provider: Haim Valdez Dx/Rx/DC Orders Clinical Impression: Finger laceration Instructions: ED Laceration Extremity Prescriptions: No Action aspirin [Adult Aspirin Regimen] 81 mg tablet,delayed release (DR/EC) 81 mg PO DAILY Patient Comments: pt. states she has not taken any medications for months diazepam [Valium] 10 MG tablet 10 mg PO BID PRN (Reason: Anxiety) Patient Comments: pt. states she has not taken any medications for months hydrocodone-acetaminophen 5-325 mg tablet 1 tab PO TID PRN PRN (Reason: pain) Patient Comments: PT STATES SHE HASNT TAKEN IN ABOUT A MONTH, BUT HAS TO KEEP CALLING MD FOR REFILLS albuterol sulfate 90 mcg/actuation HFA aerosol inhaler 2 puff inhalation Q4H PRN (Reason: shortness of breath or wheezing) Patient Comments: FAMILY SAYS SHE USES A LOT. PT STATES SHE USES IT EVERY NIGHT. atorvastatin 80 mg Tablet 80 mg PO QHS Qty: 90 0RF clopidogrel 75 mg Tablet 75 mg PO DAILY Qty: 21 0RF Primary Care Provider: Neo Merlos Referrals: Neo Merlos, [Primary Care Provider] - Activity Restrictions/Additional Instructions: You have 2 sutures to your left index finger, these need to be taken out in 7 days. Print Language: Hebrew Disposition Disposition: Home, Self Care
[2024-02-04] MEDS: Lidocaine 1% (20 ml mdv) 20 ML Vial INFILT (16:21)
[2024-02-04 16:22] VITALS: BP 134/77; PULSE 86; RESP 15; TEMP 36.7; O2SAT 96
== END 2024-02-04 16:23 | disposition home or self-care (01) ==
PROVIDERS: Emergency Provider Emergency Medicine; PCP Family Medicine; Visit Provider Emergency Medicine
DX: S61.210A Laceration without foreign body of right index finger without damage to nail, initial encounter (principal); W26.8XXA Contact with other sharp object(s), not elsewhere classified, initial encounter; F17.210 Nicotine dependence, cigarettes, uncomplicated; Z79.02 Long term (current) use of antithrombotics/antiplatelets; Z79.82 Long term (current) use of aspirin; Z79.899 Other long term (current) drug therapy; Z86.73 Personal history of transient ischemic attack (TIA), and cerebral infarction without residual deficits
CPT/HCPCS: 12001; 99283

== ENCOUNTER 2024-02-14 12:34 | Emergency (ER) | payer MEDICARE, SELFPAY ==
[2024-02-14] VITALS (7 sets, daily range): BP systolic 114–158; BP diastolic 58–74; PULSE 64–107; RESP 16–21; TEMP 36.2–36.9; O2SAT 92–98; BMI 25.7
--- NOTE | 2024-02-14 13:03 | ED.RN ---
Dr. Hoyt bedside
--- NOTE | 2024-02-14 13:22 | CT_ITS ---
STUDY: CT BRAIN WITHOUT CONTRAST REASON FOR EXAM: Female, 73 years old. AMS RADIATION DOSAGE (If Supplied By Facility): CTDIvol = ( 44.99 ) mGy, DLP = ( 829.85 ) mGycm TECHNIQUE: Transaxial CT imaging of the brain was performed without administration of intravenous contrast material. Individualized dose optimization techniques were used for this CT. COMPARISON: Comparison is made with prior study January 23, 2024. FINDINGS: Normal soft tissue structures. There is hyperostosis frontalis internus. There is mild cerebral atrophy with widening of the extra-axial spaces and ventricular dilatation. There are areas of decreased attenuation within the white matter tracts of the supratentorial brain, consistent with microvascular disease changes. Decreased attenuation in the left parietal lobe suggestive of a subacute infarct. There now is evidence of increased linear densities in the gyral distribution at that site suggestive of possible petechial hemorrhage. Normal basal ganglia and thalami. Normal brainstem. Normal cerebellum. Normal visualized paranasal sinuses. CT/Brain/Head without Contrast IMPRESSION: Chronic involutional changes of the brain. Gyral petechial hemorrhage overlying the focal area of decreased attenuation in the left parietal lobe. This isn''t compatible with a subacute infarct. Electronically Signed: Gonzalo Caro MD at 14:19 EDT ,
--- NOTE | 2024-02-14 13:22 | EKG12_ITS ---
Test Reason : CONFUSION Blood Pressure : / mmHG Vent. Rate : 066 BPM Atrial Rate : 066 BPM P-R Int : 134 ms QRS Dur : 082 ms QT Int : 426 ms P-R-T Axes : 070 079 079 degrees QTc Int : 446 ms Normal sinus rhythm Nonspecific ST abnormality Abnormal ECG Confirmed by Milind Saavedra ([id number]), editor magazine JOANN PATEL ([id number]) on 02/16/2024 9:33:20 AM Referred By: Confirmed By:Milind Saavedra
--- NOTE | 2024-02-14 13:23 | EX.ED.DYSGE1 ---
HPI History of Present Illness Chief Complaint: Confusion Informant: patient and spouse/S.O. Narrative Narrative: Patient is a 73-year-old female with history of left MCA stroke, carotid artery occlusion, hypertension, continued tobacco abuse and COPD presenting with altered mental status. states that this morning patient was trying to light her cigarette but instead of by the cigarette she had the tufting machine fixer flame underneath her index finger. I feel that she has been a bit more confused. He notes that she was just at [facility] for an overnight stay for syncope and a possible mini stroke. Patient was discharged 2 days ago. He was told that if she ever started have strange behavior that they should come back to the emergency room. Patient was admitted for MCA stroke on 01/22 through 01/24 with an MRI showing acute and subacute left middle cerebral artery territory infarcts and left internal carotid artery occlusion. Patient was evaluated by Dr. Fischer at that time however given that it was a total occlusion no indication for surgical intervention and plan for maximum medical therapy per neurology recommendations. [facility] was admitted at [facility] Diagnosed with a TIA. Apparently patient had a syncopal/unresponsive episode which is what brought him to the emergency room. [facility] Medical History COVID-19 Home Medications ?Medication ?Instructions ?Recorded ?Last Taken ?Type aspirin 81 mg tablet,delayed 81 mg PO DAILY 12/02/21 Unknown History release (Adult Aspirin Regimen) albuterol sulfate 90 mcg/actuation 2 puff inhalation Q4H PRN 01/23/24 Unknown History aerosol inhaler shortness of breath or wheezing hydrocodone-acetaminophen 5-325mg 1 tab PO TID PRN PRN pain 01/23/24 Unknown History 5mg-325mg atorvastatin 80 mg tablet 80 mg PO QHS #90 tabs 01/25/24 02/13/24 Rx clopidogrel 75 mg tablet 75 mg PO DAILY #21 tabs 01/25/24 02/13/24 Rx carbamazepine 200 mg tablet 200 mg PO DAILY 02/14/24 Unknown History Allergy/AdvReac Type Severity Reaction Status Date / Time lactose Allergy Unknown Verified 02/14/24 12:44 Penicillins Allergy Unknown Verified 02/14/24 12:44 rizatriptan (From Maxalt) Allergy Vomiting Verified 02/14/24 12:44 ciprofloxacin (From Cipro) AdvReac Rash Verified 02/14/24 12:44 Surgical History History of back surgery Social History Smoking Status: Heavy Smoker (>10/day) ROS ROS ED Constitutional Constitutional ED: Denies chills or fever(s) Eyes Eyes: Denies change in vision Cardiovascular Cardiovascular: Denies chest pain Respiratory/Chest Respiratory/Chest: Denies cough or dyspnea Gastrointestinal Gastrointestinal: Denies abdominal pain, nausea or vomiting Musculoskeletal Musculoskeletal: Denies arthralgias or myalgias Integumentary Denies rash Neurologic Neurologic: Reports other Details: confusion ; Denies headache(s), paresthesias or weakness Hematologic/Lymphatic Hematologic/Lymphatic: Reports easy bruising EXAM Physical Exam Const Vital Signs: 02/14/24 12:36 02/14/24 12:39 02/14/24 13:34 Temperature 98.5 F 98.5 F Temperature Source Oral Oral Pulse Rate 73 72 68 Respiratory Rate 20 H 21 H Blood Pressure 114/74 144/74 H 154/63 H Blood Pressure Mean 87 97 93 Pulse Ox 95 97 Oxygen Delivery Method Room Air Room Air 02/14/24 13:39 02/14/24 15:00 Temperature 98.2 F 97.2 F L Temperature Source Temporal Temporal Pulse Rate 86 107 H Respiratory Rate 16 16 Blood Pressure 154/67 H 128/72 H Blood Pressure Mean 96 90 Pulse Ox 92 97 Oxygen Delivery Method Room Air Room Air Positive well nourished and well developed General Appearance ED: well developed and NAD HEENT Reports moist mucous membranes HEENT Narrative: Edentulous Eyes PERRL and EOMs intact bilaterally Eyes Narrative: No visual field cut appreciated Neck supple and no JVD Chest Wall inspection of chest normal and palpation of chest normal Resp normal respiratory effort Resp Narrative: No wheezing appreciated. Diminished breath sounds at the bases. Auscultation: diminished lung sounds Cardio regular rate and regular rhythm GI normal to inspection, nondistended, normoactive bowel sounds, non-tender and non-distended Extremity normal to inspection General Extremety ED: Negative for edema or tenderness General Extremity: Negative for edema Neuro Neuro Narrative: Patient does not know the year and states it is 1963 but otherwise knows the month. Has a hard time naming my watch but is able to name glove and pen appropriately. No focal neurologic deficits otherwise noted. Sensorium / Orientation: alert and orientation impaired Motor Exam: general weakness Skin Skin Narrative: Multiple bruises on the extremities and very states of healing. MDM MDM MDM Narrative Medical decision making narrative: Patient is evaluated for what sounds like altered mental status/encephalopathy. Patient is A and O x 2. She has had recent stroke and has was told if she acts funny he should bring her in. Nursing document the patient is delirious in the room and seeing things on the ceiling. Patient later denies that her states she was just joking. Clinically I do suspect patient is delirious and does not have capacity. Encephalopathy workup is obtained. CT of the brain as well as chest x-ray is obtained. CBC largely normal. CMP shows mild hypokalemia with a potassium of 2.8. Magnesium added on which is normal at 1.7. Ammonia level is normal at 18. Urinalysis is not consistent with infection. Patient is COVID-positive. Two-view chest x-ray viewed by myself as well as radiology actually shows what looks to be a button battery in the proximal esophagus. When patient is asked about this she denies ingesting anything or put anything in her mouth especially a battery. is not aware of her swallowing any batteries. GI was paged however I did not hear back prior to talking with the teleneurology. CT of the brain Gyral petechial hemorrhage overlying the focal area of decreased attenuation of the left parietal lobe suggestive of subacute infarct. Because of the concern of petechial hemorrhage neurology consult is obtained. Patient is evaluated through teleneurology/[facility] by Dr. Tabares. He is not sure if this is luminal necrosis versus hemorrhage but recommends transfer to [facility] for close monitoring. In addition as patient appears to have an esophageal button battery ingestion she will require more emergent transfer as she would likely need emergent/urgent endoscopy to remove this because of the risk of esophageal necrosis and perforation. Because of these findings, patient be transferred via critical care air. Patient continues to insist that there is really nothing wrong with her but is agreeable with this plan of care. Lab Data Attestation: I reviewed the patient's lab results. Labs: Laboratory Results - last 24 hr 02/14/24 02/14/24 02/14/24 12:55 13:37 14:51 WBC 9.8 RBC 3.86 L Hgb 11.9 L Hct 35.8 L MCV 92.7 MCH 30.8 MCHC 33.2 RDW Std Deviation 43.6 RDW Coeff of Negro 12.7 Plt Count 370 MPV 9.4 Immature Gran % (Auto) 0.600 Neut % (Auto) 66.0 Lymph % (Auto) 25.5 [place] % (Auto) 6.6 Eos % (Auto) 0.9 Baso % (Auto) 0.4 Absolute Neuts (auto) 6.5 Absolute Lymphs (auto) 2.51 Nucleated RBC % 0 Sodium 136 Potassium 2.8 L Chloride 104 Carbon Dioxide 25.0 Anion Gap 8 BUN 14 Creatinine 0.71 Estim Creat Clear Calc 52.84 Est GFR (MDRD) Af Amer 104 Est GFR (MDRD) Non-Af 86 BUN/Creatinine Ratio 19.8 Glucose 121 H Calcium 8.8 Magnesium 1.7 Total Bilirubin 0.30 AST 19 ALT 18 Alkaline Phosphatase 61 Ammonia 18.0 Total Protein 6.9 Albumin 3.0 L Globulin 3.9 Albumin/Globulin Ratio 0.8 L Urine Color Yellow Urine Clarity Sl. Cloudy Urine pH 6.5 Ur Specific [place] 1.010 Urine Protein Negative Urine Glucose (UA) Normal Urine Ketones Negative Urine Occult Blood Negative Urine Nitrite Negative Urine Bilirubin Negative Urine Urobilinogen Normal Ur Leukocyte Esterase 100 H Urine RBC 0 SEEN Urine WBC 0-5 SEEN Ur Squamous Epith Cells 0-5 SEEN Urine Bacteria 1+ Urine Mucus 1+ Urine Yeast 1+ Radiography Diagnostic Testing: Clinical Impression(s) from Imaging Studies Brain CT 02/14/24 13:22 IMPRESSION: Chronic involutional changes of the brain. Gyral petechial hemorrhage overlying the focal area of decreased attenuation in the left parietal lobe. This isn''t compatible with a subacute infarct. Electronically Signed: Gonzalo Caro MD at 14:19 EDT , ADDENDUM: 02/14/24 1430 IMPRESSION: Gyral petechial hemorrhage overlying the focal area of decreased attenuation in the left parietal lobe suggestive of subacute infarction. Electronically Signed: Gonzalo Caro MD at 14:23 EDT , Chest X-Ray 02/14/24 14:05 IMPRESSION: Foreign body most likely a battery within the proximal esophagus. Scarring at the lung bases and hyperinflation. Electronically Signed: Gonzalo Caro MD at 14:22 EDT , Rhythm Strip Rhythm Strip: Sinus Rhythm Rate: 66 Ectopy: None EKG Initial EKG: Attestation: I personally reviewed and interpreted this EKG as follows: Interpretation: Sinus Rhythm Comments: Normal sinus rhythm rate of 66 bpm Normal axis Normal intervals Nonspecific T wave changes No significant change degree to prior EKG Management Discussion w/another healthcare provider: Manager Clinical Pharmacy Critical Care Time Critical Care Time: Yes Critical care time (excluding procedures): 30-74 minutes (45), Discussing w/Patient &/or Family/Nib Inspector, Discussing w/Consultants and Arranging Admission or Transfer Discharge Plan Triage Chief Complaint: Confusion ED Provider: Namita Hoyt Dx/Rx/DC Orders Clinical Impression: Hemorrhage, petechial, COVID-19, History of stroke, Ingestion of button battery, Acute hypokalemia Prescriptions: No Action aspirin [Adult Aspirin Regimen] 81 mg tablet,delayed release (DR/EC) 81 mg PO DAILY Patient Comments: pt. states she has not taken any medications for months hydrocodone-acetaminophen 5-325 mg tablet 1 tab PO TID PRN PRN (Reason: pain) Patient Comments: PT STATES SHE HASNT TAKEN IN ABOUT A MONTH, BUT HAS TO KEEP CALLING MD FOR REFILLS albuterol sulfate 90 mcg/actuation HFA aerosol inhaler 2 puff inhalation Q4H PRN (Reason: shortness of breath or wheezing) Patient Comments: FAMILY SAYS SHE USES A LOT. PT STATES SHE USES IT EVERY NIGHT. atorvastatin 80 mg Tablet 80 mg PO QHS Qty: 90 0RF clopidogrel 75 mg Tablet 75 mg PO DAILY Qty: 21 0RF carbamazepine 200 mg tablet 200 mg PO DAILY Primary Care Provider: Neo Merlos Referrals: Neo Merlos DO [Primary Care Provider] - Print Language: Ukrainian Disposition Disposition: Acute Care Hospital Discharge Location: [facility]
[2024-02-14 13:36] LABS: Absolute Lymphocyte Count 2.51 X10^3/uL (0.83-4.51); Absolute Neutrophil Count 6.5 X10^3/uL (2.0-7.7); Basophil# 0.04 X10^3/uL; Basophil% 0.4 % (0-1); Eosinophil# 0.09 X10^3/uL; Eosinophils% 0.9 % (0-5); Hematocrit 35.8 % (37-47); Hemoglobin 11.9 g/dL (12.0-15.0); Lymphocyte # 2.51 X10^3/ul (0.83-4.51); Lymphocyte % 25.5 % (19-41); Mean Corp Hgb Conc 33.2 g/dL (32-36); Mean Corpuscular Hgb 30.8 pg (27.0-32.0); Mean Corpuscular Volume 92.7 fL (81-99); Mean Platelet Vol. 9.4 fl (6.2-12.0); Monocyte# 0.65 X10^3/uL; Monocyte% 6.6 % (0-10); NRBC Flagged by Analyzer 0 % (0-5); Neutrophil # 6.49 X10^3/uL (2.7-7.7); Platelet Count 370 K/mm3 (150-450); RBC Distribution Width CV 12.7 % (11.6-14.6); RBC Distribution Width SD 43.6 fl (35.1-43.9); Red Blood Count 3.86 M/mm3 (4.2-5.4); White Blood Count 9.8 K/mm3 (4.4-11.0)
[2024-02-14 13:52] LABS: ALB/GLOB Ratio 0.8 RATIO (0.9-2.4); AST(SGOT) 19 U/L (15-37); Alanine Aminotransfer ALT/SGPT 18 U/L (13-56); Alkaline Phosphatase 61 U/L (45-117); Anion Gap 8 (5-15); BUN 14 mg/dL (7-18); BUN/Creat Ratio 19.8 RATIO (10-20); Calcium,Total 8.8 mg/dL (8.5-10.1); Chloride 104 mmol/L (98-107); Creatinine, Serum 0.71 mg/dL (0.55-1.02); EST Glomerular Filtration Rate 86 mL/min (>60); Est Glom Filt Rate - Afr Amer 104 mL/min (>60); Estimated Creatinine Clearance 52.84 ml/min; Globulin 3.9 g/dL (2.2-4.2); Glucose 121 mg/dL (74-106); Potassium 2.8 mmol/L (3.5-5.1); Protein, Total 6.9 g/dL (6.4-8.2); Sodium Level 136 mmol/L (136-145)
--- NOTE | 2024-02-14 14:05 | RAD_ITS ---
STUDY: X-RAY CHEST REASON FOR EXAM: Female, 73 years old. AMS TECHNIQUE: PA and lateral views of the chest. COMPARISON: Comparison is made with prior study January 23, 2024. FINDINGS: EKG electrodes are seen. There is a 2.4 cm x 0.7 cm metallic rounded density within the proximal esophagus suggestive of a battery. There is hyperinflation of the lungs consistent with chronic obstructive lung disease (COPD). Stable increased markings at the lung bases suggestive of scarring. There is no demonstrated pleural abnormality. Normal size heart. Normal mediastinum and leilani. Normal visualized pulmonary arteries. There is atherosclerotic tortuosity of the aortic arch and descending thoracic aorta. Normal visualized thoracic spine. Normal visualized ribs, clavicles, and shoulders. There is no demonstrated abnormality of the visualized soft tissue structures of the upper abdomen. RAD/Chest PA and Lateral IMPRESSION: Foreign body most likely a battery within the proximal esophagus. Scarring at the lung bases and hyperinflation. Electronically Signed: Gonzalo Caro MD at 14:22 EDT ,
[2024-02-14 14:25] LABS: Magnesium 1.7 mg/dL (1.6-2.6)
[2024-02-14 14:57] LABS: Red Blood Cells-Urine 0 SEEN /hpf (0-5)
[2024-02-14 14:58] LABS: Color, Urine Yellow (Yellow); Glucose, Dipstick Normal (Normal); Ketone-Dipstick Negative (Negative); Leukocyte Esterase-Dipstick 100 /ul (Negative); Nitrite-Dipstick Negative (Negative); Occult Blood-Urine Negative /ul (Negative); Protein-Dipstick Negative (Negative); Urine Bilirubin Dipstick Negative (Negative); Urine Clarity Sl. Cloudy (Clear); Urine Urobilinogen Normal (Normal); Urine pH 6.5 (5.0 - 8.0)
--- NOTE | 2024-02-14 14:59 | NURSING ---
Stroke cart placed bedside
[2024-02-14 15:08] LABS: Bacteria 1+ /hpf (None Seen); Mucous, Urine 1+ /hpf (<or=2+); Squamous Epithelial Cells - UA 0-5 SEEN /hpf (5-10)
[2024-02-14 15:09] LABS: White Blood Cells 0-5 SEEN /hpf (0-5); Yeast-Urine 1+ /hpf (None Seen)
--- NOTE | 2024-02-14 15:49 | ED.RN ---
update given to Lula platt
[2024-02-14] MEDS: Potassium Chloride 10mEq/100mL 10 MEQ/100 ML IV.SOLN. 100 MEQ IV BOLUS (16:26)
--- NOTE | 2024-02-14 16:34 | ED.RN ---
this rn called transfer center to confirm that I did not need to call report
== END 2024-02-14 16:34 | disposition short-term general hospital (02) ==
PROVIDERS: Emergency Provider Emergency Medicine; PCP Family Medicine; Visit Provider Emergency Medicine
DX: T18.198A Other foreign object in esophagus causing other injury, initial encounter (principal); J44.9 Chronic obstructive pulmonary disease, unspecified; I61.1 Nontraumatic intracerebral hemorrhage in hemisphere, cortical; W44.A0XA Battery unspecified, entering into or through a natural orifice, initial encounter; U07.1 COVID-19; G93.49 Other encephalopathy; R29.701 NIHSS score 1; I65.22 Occlusion and stenosis of left carotid artery; E87.6 Hypokalemia; I10 Essential (primary) hypertension; F17.200 Nicotine dependence, unspecified, uncomplicated; Z79.82 Long term (current) use of aspirin; Z79.899 Other long term (current) drug therapy; Z79.02 Long term (current) use of antithrombotics/antiplatelets; Z86.73 Personal history of transient ischemic attack (TIA), and cerebral infarction without residual deficits
CPT/HCPCS: 70450; 71046; 80053; 81001; 82140; 83735; 85025; 87631; 93005; 96365; 99284; A4216

== ENCOUNTER 2024-02-29 12:57 | Outpatient (RCR) | payer MEDICARE, SELFPAY ==
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
== END 2024-02-29 19:00 | disposition home or self-care (01) ==
LOC: OT 12:57
PROVIDERS: PCP Family Medicine; Referring Provider Family Medicine; Visit Provider Family Medicine
DX: I63.512 Cerebral infarction due to unspecified occlusion or stenosis of left middle cerebral artery (principal)
CPT/HCPCS: 97166

== ENCOUNTER → 2025-05-01 | Outpatient (CLI) | payer MEDICARE, SELFPAY ==
[2025-05-01 12:32] LABS: Hematocrit 42.2 % (37-47); Hemoglobin 14.0 g/dL (12.0-15.0); Immature Granulocytes Count 0.020 X10^3/uL (0.0-0.0); Mean Corp Hgb Conc 33.2 g/dL (32-36); Mean Corpuscular Volume 94.6 fL (81-99); Mean Platelet Vol. 9.8 fl (6.2-12.0); NRBC Flagged by Analyzer 0 % (0-5); Platelet Count 252 K/mm3 (150-450); RBC Distribution Width CV 12.4 % (11.6-14.6); RBC Distribution Width SD 43.0 fl (35.1-43.9); Red Blood Count 4.46 M/mm3 (4.2-5.4); White Blood Count 7.5 K/mm3 (4.4-11.0)
[2025-05-01 13:10] LABS: AST(SGOT) 25 U/L (<=31); Alanine Aminotransfer ALT/SGPT 16 U/L (<=34); Albumin, Serum 4.0 g/dL (3.4-4.8); Alkaline Phosphatase 58 U/L (35-104); Anion Gap 11 (5-15); BUN 22 mg/dL (4-19); BUN/Creat Ratio 35.5 RATIO (10-20); Calcium,Total 8.9 mg/dL (7.6-11.0); Carbon Dioxide 24.8 mmol/L (21.0-32.0); Chloride 103 mmol/L (98-108); Cholesterol 131 mg/dL (<=200); Globulin 3.0 g/dL (2.2-4.2); Glucose 114 mg/dL (70-99); Low Density Lipoprotein Calc. 62 mg/dL; Potassium 3.5 mmol/L (3.3-5.1); Triglycerides 108 mg/dL; Very Low Density Lipoprotein 22 mg/dL (5-40); Vitamin B12 199 pg/mL (180-914); cholesterol:hdl ratio screen 2.67
== END | disposition home or self-care (01) ==
LOC: BFHLAB 09:53
PROVIDERS: PCP Family Medicine; Visit Provider Family Medicine
DX: I25.10 Atherosclerotic heart disease of native coronary artery without angina pectoris (principal); E78.5 Hyperlipidemia, unspecified; R73.01 Impaired fasting glucose; E53.8 Deficiency of other specified B group vitamins
CPT/HCPCS: 36415; 80053; 80061; 82607; 83036; 85025